=== PATIENT | female | born 1960 | race Caucasian/White ===

== ENCOUNTER 2021-02-23 20:21 | Emergency (ER) | payer MEDICAID, SELFPAY ==
--- NOTE | ~2021-02-23 | CT_ITS ---
EXAMINATION: CT ABDOMEN AND PELVIS WITHOUT CONTRAST CLINICAL INFORMATION: Flank pain right COMPARISON: 07/19/2019 TECHNIQUE: Multidetector volumetric imaging was performed from the superior aspect of the liver through the pubic symphysis. Sagittal and coronal reformatted images were obtained on the technologist's workstation. This CT examination was performed using dose optimization techniques as appropriate, variously including the following: *Automated exposure control *Adjustment of mA and/or kV according to patient size (this includes techniques or standardized protocols for targeted exams where dose is matched to indication/reason for exam; i.e. extremities or head) *Use of iterative reconstruction technique DLP: 482 mGy-cm FINDINGS: LUNG BASES: 6 mm nodule at the right lung base anterior similar to previous. Pericardial thickening also seen previously LIVER, GALLBLADDER, AND BILIARY TREE: The liver is normal in size, shape, and attenuation. No focal hepatic lesion or biliary ductal dilatation is present. Status post cholecystectomy PANCREAS: Unremarkable. SPLEEN: Unremarkable. ADRENAL GLANDS: Unremarkable. KIDNEYS AND URETERS: Small high attenuation lesion inferior pole right kidney. Recommend ultrasound BLADDER: Unremarkable. GASTROINTESTINAL TRACT: The small and large bowel are unremarkable. The appendix is unremarkable. ABDOMINAL WALL: Small periumbilical herniation of omental fat LYMPH NODES: Normal. VASCULAR: Atherosclerotic change. PELVIC VISCERA: Unremarkable. OSSEOUS STRUCTURES: Unremarkable. CT/CT abdomen pelvis wo con IMPRESSION: No evidence of ureteral stone or obstruction. The bowel pattern is nonobstructing. There is no free fluid. Note is made of a small hyperdense lesion lower pole right kidney. Ultrasound recommended to further evaluate.
--- NOTE | ~2021-02-23 | XR_ITS ---
EXAMINATION: XR RIBS, RIGHT CLINICAL INFORMATION: Right-sided rib pain COMPARISON: Chest film dated 10/02/2019 TECHNIQUE: Single view of the chest and 3 detailed views of the right ribs. FINDINGS: Findings suggest patchy areas of opacity in the right lateral lung zone left lateral lung zone mid to upper. Consistent with areas of infiltrate. Chronic markings in the mid to lower lung zones. There is no pneumothorax or effusion. Detailed imaging of the ribs demonstrates a lucency in the region of the fifth rib. A fracture needs to be considered. XR/XR ribs RT min 3V w CXR1V IMPRESSION: Lucency involving the fifth right rib. A fracture needs to be considered here. There is no underlying pneumothorax or effusion but patchy upper lobe opacities right and left most consistent with patchy areas of infiltrate. Follow-up films would be recommended to assess for resolution
--- NOTE | ~2021-02-23 | US_ITS ---
EXAMINATION: US KIDNEYS, LIMITED CLINICAL INFORMATION: hyperdense lesion lower pole right kidney COMPARISON: CT dated 02/23/2021 and 07/19/2019 TECHNIQUE: Real-time imaging of the right kidney. The technologist, the examination was limited as the patient was in too much pain to continue with ultrasound due to broken rib. FINDINGS: The hyperdense lesion seen at the lower pole of the right kidney is not apparent on these images. Right kidney measures 10.9 x 4.5 x 4.2 cm (SAG x AP x TRV). The kidney is normal in size, contour and echogenicity. Renal cortical thickness is normal. No calculi or focal parenchymal lesions. No hydronephrosis. US/US renal RT IMPRESSION: The small hyperdense lesion seen on the prior CT is not apparent on this limited ultrasound. Retrospectively, this was likely present on the prior CT from 07/19/2019 and is most likely benign. If warranted, consider follow-up renal protocol CT with and without contrast or MRI with and without contrast for further assessment on a nonemergent basis for more definitive characterization.
[2021-02-23 20:24] VITALS: PULSE 93; TEMP 36.6; O2SAT 92; BMI 25.4
--- NOTE | 2021-02-23 21:28 | ED.GENADULT ---
HPI - General Adult General Chief complaint: Abdominal Pain Stated complaint: abd pain Time Seen by Provider: 02/23/21 21:15 Source: patient Mode of arrival: ambulatory Limitations: no limitations History of Present Illness HPI narrative: Patient comes emergency room complaining of right-sided rib pain and right-sided flank pain. Patient states several days ago, almost 5 days ago, patient started coughing, states that she thinks that she broke a rib, states that her PCP started her on gabapentin for pain, patient usually takes 10 mg of oxycodone TID. Patient states that for the last 2 days, she has been having right-sided flank pain. Patient states she had 1 episode of episodes today, no diarrhea. Related Data Previous Rx's Medication Instructions Recorded azithromycin 250 mg PO DAILY #4 tab 02/23/21 Allergies Allergy/AdvReac Type Severity Reaction Status Date / Time bee pollen [BEE STINGS] Allergy Severe ANAPHYLAXIS Unverified 05/17/20 15:23 Penicillins Allergy Mild RASH Unverified 05/17/20 15:23 Sulfa (Sulfonamide Allergy Mild RASH Unverified 05/17/20 15:23 Antibiotics) Bee stings Allergy Unknown Uncoded 08/04/19 00:00 Penicillins Allergy Unknown Uncoded 08/04/19 00:00 Sulfar Allergy Unknown Uncoded 08/04/19 00:00 Review of Systems Review of Systems: Constitutional : No Weight loss, No Fever, No Chills, No Night Sweats, No Fatigue, No Malaise ENT/Mouth : No Hearing loss, No Ear Pain, No Nasal Congestion, No Sinus Pain, No Hoarseness, No sore throat, No Rhinorrhea, No Swallowing Difficulty Eyes: No Eye Pain, No Swelling, No Redness, No Foreign Body, No Discharge, No Vision Changes Cardiovascular : No Chest Pain, No SOB, No Dyspnea on Exertion, No Orthopnea, No Edema, No Palpitations Respiratory : No Cough, No Sputum, No Wheezing, No Smoke Exposure, No Dyspnea Gastrointestinal : One episode of vomiting,No Diarrhea, No Constipation, right flank pain radiating towards the right lower quadrant Genitourinary : no irregular bleeding, No Dysuria, No Urinary Frequency, No Hematuria, No Urinary Incontinence, No Urgency, No Flank Pain, No Urinary Flow Changes, No Hesitancy Musculoskeletal : No joint pain, No Myalgias, No Joint Swelling Skin : No Skin Lesions, No rash Neuro : No Weakness, No Numbness, No Paresthesias, No Loss of Consciousness, No Dizziness, No Headache Psych : No Anxiety/Panic, No Depression, No SI/HI/AH/VH, No Social Issues, Heme/Lymph: No Bruising, No Bleeding,No Lymphadenopathy Endocrine : No Polyuria, No Polydipsia, No Temperature Intolerance [facility] Past Medical History Medical History Gallbladder & bile duct stone with obstruction Myocardial infarction Social History Social History Alcohol intake: unknown Patient Tobacco Use Status: Tobacco use Unknown Use of substances other than those prescribed or required for medical reasons: Unknown Advance Directives: No Advance Directives Information Provided: Yes Patient : No Physical Exam Vital Signs: Vital Signs: Last Vital Signs Temp 97.9 F 02/23/21 20:24 Pulse 88 02/23/21 23:30 Resp 20 02/23/21 23:30 BP 164/92 H 02/23/21 23:30 Pulse Ox 99 02/23/21 22:00 Body Mass Index 25.4 Appearance: Alert. Oriented X3. No acute distress. teary Eyes: Pupils equal, round and reactive to light. ENT: Pharynx normal. Neck: Normal inspection. Neck supple. No lymph nodes noted. No crepitus CVS: Normal heart rate and rhythm. Pulses normal. Normal S1 and S2 Respiratory: No respiratory distress. Breath sounds normal. No Wheezing. No rales Abdomen: Soft and nontender. No rigidity. No distention. pain in the right flank back: palpable muscle spasms in the thoracic back Skin: Skin warm and dry. Normal skin color. Normal skin turgor. Extremities: No lower extremity edema. No lower extremity edema. No Lacerations. No Rash Neuro: Oriented X 3. No motor deficit. No sensory deficit. Moving all extermities. No slurred speech. Course Course Course Narrative: I discussed the CT and ultrasound with the patient, the renal cyst is likely benign. Patient struck to follow up with the primary care physician. Patient does have a 5th rib fracture on the right side, patient likely developing pneumonia. Patient started on the antibiotics, patient's oxygen saturation 99% on room air, no desaturations. Patient ready for discharge Medical Decision Making Lab Data Result diagrams: 02/23/21 21:46 02/23/21 22:14 Labs: Lab Results 02/23/21 02/23/21 02/23/21 Range/Units 21:46 21:46 22:14 WBC 11.0 H (4.8-10.8) X10*3/uL RBC 4.88 (4.20-5.50) X10*6/uL Hgb 14.6 (12.0-16.0) g/dl Hct 43.2 (37-47) % MCV 88.5 (80-98) fL MCH 29.9 (27.0-33.0) pg MCHC 33.8 (31.0-35.0) g/dl RDW 14.6 (11.0-16.0) % Plt Count 374 (160-400) X10*3/uL MPV 9.8 (9.4-12.3) fL Immature Gran % (Auto) 0.5 H (0.0-0.4) % Neut % (Auto) 62.6 (45-73) % Lymph % (Auto) 28.4 (20-40) % [place] % (Auto) 7.6 (2-11) % Eos % (Auto) 0.6 (0-4) % Baso % (Auto) 0.3 (0-2) % Lymph # (Auto) 3.1 (1.2-4.9) X10*3/uL [place] # (Auto) 0.8 (0.1-1.2) X10*3/uL Eos # (Auto) 0.1 (0.0-0.4) X10*3/uL Baso # (Auto) 0.0 (0.0-0.2) X10*3/uL Abs Immat Gran (auto) 0.06 H (0.00-0.03) X10*3/uL Absolute Neuts (auto) 6.9 (2.0-8.3) X10*3/uL Absolute Nucleated RBC 0.000 (0.0-0.012) X10*3/uL Nucleated RBC % (auto) 0.0 (0.0-0.2) /100WBC Sodium 139 (135-145) mmol/L Potassium 3.8 (3.3-5.1) mmol/L Chloride 105 (96-108) mmol/L Carbon Dioxide 22 (22-29) mmol/L Anion Gap 16 (12-20) BUN 11 (9-16) mg/dL Creatinine 0.94 (0.5-1.4) mg/dL Estim Creat Clear Calc 70.2 Estimated GFR > 60 Random Glucose 123 H (60-115) mg/dL Calcium 9.9 (8.4-10.2) mg/dL Total Bilirubin Cancelled 0.6 Direct Bilirubin Cancelled 0.3 AST Cancelled 9 ALT Cancelled < 6 Alkaline Phosphatase Cancelled 107 Total Protein Cancelled 7.6 Albumin Cancelled 4.1 Lipase Cancelled 19 Imaging Data Chest x-ray: Radiologist's impression: FINDINGS: Findings suggest patchy areas of opacity in the right lateral lung zone left lateral lung zone mid to upper. Consistent with areas of infiltrate. Chronic markings in the mid to lower lung zones. There is no pneumothorax or effusion. Detailed imaging of the ribs demonstrates a lucency in the region of the fifth rib. A fracture needs to be considered. XR/XR ribs RT min 3V w CXR1V IMPRESSION: Lucency involving the fifth right rib. A fracture needs to be considered here. There is no underlying pneumothorax or effusion but patchy upper lobe opacities right and left most consistent with patchy areas of infiltrate. Follow-up films would be recommended to assess for resolution Discharge Plan Discharge Clinical Impression: Fracture of rib Qualifiers: Encounter type: initial encounter Rib fracture type: single rib Fracture type: closed Laterality: right Qualified Code(s): S22.31XA - Fracture of one rib, right side, initial encounter for closed fracture Pneumonia Qualifiers: Pneumonia type: due to unspecified organism Laterality: unspecified laterality Lung location: unspecified part of lung Qualified Code(s): J18.9 - Pneumonia, unspecified organism Patient Disposition: Home, Self-Care Instructions: Rib Fracture (ED), Pneumonia (ED) Additional Instructions: Please follow-up with your primary care physician tomorrow. If you have any worsening or new symptoms, please return to the emergency room or call 911 Prescriptions: New azithromycin 250 mg tablet 250 mg PO DAILY Qty: 4 RF: 0
[2021-02-23 21:56] LABS: Basophils Percent Auto 0.3 % (0-2); Eosinophils Absolute Auto 0.1 X10*3/uL (0.0-0.4); Eosinophils Percent Auto 0.6 % (0-4); Hematocrit 43.2 % (37-47); Hemoglobin 14.6 g/dl (12.0-16.0); Imm Gran Abs Auto 0.06 X10*3/uL (0.00-0.03); Imm Gran Pct Auto 0.5 % (0.0-0.4); Lymphocytes Absolute Auto 3.1 X10*3/uL (1.2-4.9); Lymphocytes Percent Auto 28.4 % (20-40); MANUAL DIFF FLAG NO; Mean Corpuscular HGB Conc 33.8 g/dl (31.0-35.0); Mean Corpuscular Hemoglobin 29.9 pg (27.0-33.0); Mean Corpuscular Volume 88.5 fL (80-98); Mean Platelet Volume 9.8 fL (9.4-12.3); Monocytes Absolute Auto 0.8 X10*3/uL (0.1-1.2); Monocytes Percent Auto 7.6 % (2-11); Neutrophils Absolute Auto 6.9 X10*3/uL (2.0-8.3); Neutrophils Percent Auto 62.6 % (45-73); Platelet Count 374 X10*3/uL (160-400); Red Blood Count 4.88 X10*6/uL (4.20-5.50); Red Cell Distribution Width 14.6 % (11.0-16.0)
[2021-02-23 22:00] VITALS: BP 134/92; PULSE 84; RESP 16; O2SAT 99
[2021-02-23] MEDS: traMADoL HCL 50 MG TABLET PO (22:15)
[2021-02-23 22:48] LABS: Alanine Aminotransferase < 6 U/L (0-31); Albumin Level 4.1 g/dL (3.5-5.0); Alkaline Phosphatase 107 U/L (39-117); Anion Gap 16 (12-20); Aspartate Amino Transferase 9 U/L (5-31); Bilirubin Direct 0.3 mg/dL (0.0-0.5); Bilirubin Total 0.6 mg/dL (0.0-1.0); Blood Urea Nitrogen 11 mg/dL (9-16); Calcium 9.9 mg/dL (8.4-10.2); Carbon Dioxide 22 mmol/L (22-29); Chloride 105 mmol/L (96-108); Creatinine Clr Calc Pharmacy 70.2; Estimated Glomerular Filt Rate > 60; Glucose Random 123 mg/dL (60-115); Lipase 19 U/L (8-78); Potassium 3.8 mmol/L (3.3-5.1); Sodium 139 mmol/L (135-145); Total Protein 7.6 g/dL (6.5-8.0)
[2021-02-23 23:30] VITALS: BP 164/92; PULSE 88; RESP 20
[2021-02-24] VITALS: BP 164/92; PULSE 83; RESP 18; O2SAT 95
[2021-02-24] MEDS: oxyCODONE HCl Immed Release 5 MG TABLET PO (00:05)
[2021-02-24] MEDS: Azithromycin 500 MG TABLET PO (00:05)
== END 2021-02-24 00:14 | disposition home or self-care (01) ==
PROVIDERS: Emergency Provider Emergency Medicine; PCP Nurse Practitioner Adult Health
DX: S22.31XA Fracture of one rib, right side, initial encounter for closed fracture (principal); J18.9 Pneumonia, unspecified organism; X58.XXXA Exposure to other specified factors, initial encounter; Y93.9 Activity, unspecified; Y92.9 Unspecified place or not applicable; Y99.9 Unspecified external cause status
CPT/HCPCS: 36415; 71101; 74176; 76775; 80048; 80076; 83690; 85025; 99285

== ENCOUNTER 2022-12-21 12:31 | Emergency (ER) | payer OTHER, SELFPAY ==
--- NOTE | ~2022-12-21 | XR_ITS ---
EXAMINATION: XR RIBS, RIGHT CLINICAL INFORMATION: Trauma COMPARISON: Previous chest and right rib x-rays January 2021 TECHNIQUE: 3 views of the right ribs and one view of the chest were obtained. FINDINGS: The cardiac and mediastinal contours are stable. The lungs are clear. No pleural effusion or pneumothorax. There are multiple old right rib fractures. There is a a recent appearing right posterior lateral fourth and fifth rib fractures and question 6 rib fracture. XR/XR ribs RT min 3V w CXR1V IMPRESSION: Right fourth fifth and question 6th recent appearing rib fractures. No evidence for acute disease in the chest.
--- NOTE | ~2022-12-21 | XR_ITS ---
EXAMINATION: XR SHOULDER AND CLAVICLE, RIGHT CLINICAL INFORMATION: Right shoulder pain status post trauma. COMPARISON: None available. TECHNIQUE: 3 views of the right shoulder and 2 views of the right clavicle were obtained. FINDINGS: There is an acute, mildly displaced oblique fracture of the mid one third of the right clavicle. The right sternoclavicular and acromioclavicular joints are normally aligned with mild degenerative changes. The right glenohumeral joint is intact. The soft tissues are unremarkable. XR/XR clavicle RT IMPRESSION: 1. Acute, mildly displaced mid right clavicular fracture. 2. Mild right sternoclavicular and acromioclavicular degenerative joint changes.
--- NOTE | ~2022-12-21 | XR_ITS ---
EXAMINATION: XR SHOULDER AND CLAVICLE, RIGHT CLINICAL INFORMATION: Right shoulder pain status post trauma. COMPARISON: None available. TECHNIQUE: 3 views of the right shoulder and 2 views of the right clavicle were obtained. FINDINGS: There is an acute, mildly displaced oblique fracture of the mid one third of the right clavicle. The right sternoclavicular and acromioclavicular joints are normally aligned with mild degenerative changes. The right glenohumeral joint is intact. The soft tissues are unremarkable. XR/XR shoulder RT min 2V IMPRESSION: 1. Acute, mildly displaced mid right clavicular fracture. 2. Mild right sternoclavicular and acromioclavicular degenerative joint changes.
[2022-12-21 12:33] VITALS: BP 141/95; PULSE 117; RESP 18; TEMP 36.6; O2SAT 98; BMI 24.5
--- NOTE | 2022-12-21 12:35 | ED_ITS ---
HPI - General Adult General Chief complaint: Fall <[place] - Last Filed: 12/21/22 12:36> Stated complaint: Fall/R shoulder inj/R rib inj <[place] - Last Filed: 12/21/22 12:36> Time Seen by Provider: 12/21/22 13:09 <[place] - Last Filed: 12/21/22 12:36> History of Present Illness HPI narrative: Patient complains of left shoulder, left clavicle, and left mid rib pain after a fall on a wet manhole cover where she fell on her left side this morn ing, she has no neck pain no back pain, she did not hit her head she has no headache no dizziness no confusion, she did not have any preceding dizziness or faintness she simply slipped and fell in remembers every, no abdominal pain no shortness of breath <MARY ELLEN Ritter - Last Filed: 12/21/22 19:21> Related Data Home medications: Previous Rx's Medication Instructions Recorded azithromycin 250 mg tablet 250 mg PO DAILY #4 tabs 02/23/21 acetaminophen 500 mg tablet 1,000 mg PO QID PRN pain #30 tabs 12/21/22 oxycodone 5 mg tablet 5 mg PO Q6H PRN pain #14 tabs 12/21/22 <[place] - Last Filed: 12/21/22 12:36> Allergies/adverse reactions: Allergies Allergy/AdvReac Type Severity Reaction Status Date / Time bee pollen [BEE STINGS] Allergy Severe ANAPHYLAXIS Verified 12/21/22 12:33 Penicillins Allergy Mild RASH Verified 12/21/22 12:33 Sulfa (Sulfonamide Allergy Mild RASH Verified 12/21/22 12:33 Antibiotics) Bee stings Allergy Unknown Unknown Uncoded 12/21/22 12:33 Penicillins Allergy Unknown Unknown Uncoded 12/21/22 12:33 Sulfar Allergy Unknown Unknown Uncoded 12/21/22 12:33 <[place] - Last Filed: 12/21/22 12:36> PMFSH Past Medical History Source: nursing notes reviewed <MARY ELLEN Ritter - Last Filed: 12/21/22 19:21> Medical History: Medical History Gallbladder & bile duct stone with obstruction Myocardial infarction <[place] - Last Filed: 12/21/22 12:36> Social History Social History: Social History Alcohol intake: unknown Patient Tobacco Use Status: Tobacco use Unknown Advance Directives: No Advance Directives Information Provided: No <[place] - Last Filed: 12/21/22 12:36> Physical Exam ED Vital Signs: Vital Signs - 24 hr 12/21/22 12:33 Temperature 98 F Pulse Rate 117 H Respiratory Rate 18 Blood Pressure 141/95 H Pulse Oximetry 98 Oxygen Delivery Method Room Air BMI result Body Mass Index 24.5 <[place] - Last Filed: 12/21/22 12:36> Vital Signs - 24 hr 12/21/22 12:33 Temperature 98 F Pulse Rate 117 H Respiratory Rate 18 Blood Pressure 141/95 H Pulse Oximetry 98 Oxygen Delivery Method Room Air BMI result Body Mass Index 24.5 <MARY ELLEN Ritter - Last Filed: 12/21/22 19:21> General appearance is no acute distress Head is normocephalic atraumatic Neck is supple no tenderness no midline tenderness, full range of motion in the neck The chest is clear to auscultation with full symmetric equal breath sounds Posterolateral mid rib area is tender to the touch , there is ecchymosis over mid clavicle in the right chest wall no other ecchymosis, no other chest wall tenderness, there was no crepitus The abdomen is soft and nontender Extremities the right shoulder had anterior and lateral tenderness, range of motion was very limited, there was no deformity, neurovascular intact distal Other extremities normal <MARY ELLEN Ritter - Last Filed: 12/21/22 19:21> Course Course Course Narrative: 62-year-old female presents for evaluation of right shoulder and rib pain. She reports slipping on a manhole cover last night and falling on her right side. Denies hitting her head or losing consciousness. Denies anticoagulation use. No evidence of head trauma. X-rays of the right shoulder, clavicle and ribs ordered. <[place] - Last Filed: 12/21/22 12:36> 62-year-old female presents for evaluation of right shoulder and rib pain. She reports slipping on a manhole cover last night and falling on her right side. Denies hitting her head or losing consciousness. Denies anticoagulation use. No evidence of head trauma. X-rays of the right shoulder, clavicle and ribs ordered. Patient with ecchymosis tenderness over mid right clavicle and tenderness in the ribs with clear lungs breathing easily after a fall X-rays showed a mildly displaced oblique fracture of the mid 3rd of the right clavicle, as well as some arthritis in the shoulder joint but no other fracture no dislocation in the shoulder area X-ray of the ribs and lung showed a right posterolateral 4th and 5th recent appearing rib fractures no other worrisome findings in the chest X-ray findings match where patient has tenderness and discomfort is in both ribs and clavicle She is given a sling and pain medicine and will follow with orthopedics for further evaluation <MARY ELLEN Ritter - Last Filed: 12/21/22 19:21> Medications Administered Discontinued Medications Generic Name Dose Route Start Last Admin Trade Name Freq PRN Reason Stop Dose Admin Acetaminophen 975 mg 12/21/22 13:50 12/21/22 13:58 Acetaminophen 325 Mg Tablet PO 12/21/22 13:51 975 mg ONCE ONE Administration Lorazepam 0.5 mg 12/21/22 13:52 12/21/22 13:58 Lorazepam 0.5 Mg Tablet PO 12/21/22 13:53 0.5 mg ONCE ONE Administration Oxycodone HCl 5 mg 12/21/22 13:50 12/21/22 13:58 Oxycodone Hcl Immed Release 5 Mg Tablet PO 12/21/22 13:51 5 mg ONCE ONE Administration <[place] - Last Filed: 12/21/22 12:36> Medications Administered Discontinued Medications Generic Name Dose Route Start Last Admin Trade Name Freq PRN Reason Stop Dose Admin Acetaminophen 975 mg 12/21/22 13:50 12/21/22 13:58 Acetaminophen 325 Mg Tablet PO 12/21/22 13:51 975 mg ONCE ONE Administration Lorazepam 0.5 mg 12/21/22 13:52 12/21/22 13:58 Lorazepam 0.5 Mg Tablet PO 12/21/22 13:53 0.5 mg ONCE ONE Administration Oxycodone HCl 5 mg 12/21/22 13:50 12/21/22 13:58 Oxycodone Hcl Immed Release 5 Mg Tablet PO 12/21/22 13:51 5 mg ONCE ONE Administration <MARY ELLEN Ritter - Last Filed: 12/21/22 19:21> Discharge Plan Discharge Clinical Impression: Closed fracture of right clavicle, Multiple rib fractures <[place] - Last Filed: 12/21/22 12:36> Patient Disposition: Home, Self-Care <[place] - Last Filed: 12/21/22 12:36> Additional Instructions: X-rays showed a broken right clavicle so follow with orthopedist X-ray identified to rib fractures possibly a 3rd in the area of discomfort on her right side Follow with primary doctor for re-evaluation next week Return to the ER any time for any difficulty breathing any worse condition any concerns <[place] - Last Filed: 12/21/22 12:36> Prescriptions: New oxycodone 5 mg tablet 5 mg PO Q6H PRN (Reason: pain) Qty: 14 0RF Rx Instructions: Partial Fill upon patient request. acetaminophen 500 mg tablet 1,000 mg PO QID PRN (Reason: pain) Qty: 30 0RF No Action azithromycin 250 mg tablet 250 mg PO DAILY Qty: 4 0RF <[place] - Last Filed: 12/21/22 12:36> Interventions: ED Discharge Assessment Last Done: 12/21/22 14:08 <[place] - Last Filed: 12/21/22 12:36> Discharge Date/Time: 12/21/22 14:09 <[place] - Last Filed: 12/21/22 12:36>
[2022-12-21] MEDS: oxyCODONE HCl Immed Release 5 MG TABLET PO (13:58)
[2022-12-21] MEDS: LORazepam 0.5 MG TABLET PO (13:58)
[2022-12-21] MEDS: Acetaminophen 325 MG TABLET 975 MG PO (13:58)
== END 2022-12-21 14:09 | disposition home or self-care (01) ==
PROVIDERS: Emergency Provider Emergency Medicine Emergency Medical Services; PCP Nurse Practitioner Adult Health
DX: S42.001A Fracture of unspecified part of right clavicle, initial encounter for closed fracture (principal); S22.41XA Multiple fractures of ribs, right side, initial encounter for closed fracture; R07.81 Pleurodynia; M25.511 Pain in right shoulder; W01.0XXA Fall on same level from slipping, tripping and stumbling without subsequent striking against object, initial encounter; Y93.9 Activity, unspecified; Y92.9 Unspecified place or not applicable; Y99.9 Unspecified external cause status; Z79.899 Other long term (current) drug therapy
CPT/HCPCS: 71101; 73000; 73030; 99283

== ENCOUNTER 2023-04-15 14:13 | Emergency (ER) | payer OTHER, SELFPAY ==
--- NOTE | ~2023-04-15 | XR_ITS ---
EXAMINATION: XR CLAVICLE, RIGHT CLINICAL INFORMATION: Palpable lump, status post surgery. COMPARISON: Right shoulder and clavicle radiographs dated 12/21/2022. TECHNIQUE: 2 of the right clavicle. FINDINGS: There is a nonunited fracture of the distal one third of the right clavicle. A headless screw is seen in the proximal aspect of the clavicle extending into the fracture site. Adjacent corticated osseous fragments are seen. The right acromioclavicular joint is intact. The right glenohumeral joint is intact. Healing/healed right posterolateral right rib fractures are noted. The soft tissues are unremarkable. XR/XR clavicle RT IMPRESSION: Nonunited distal right clavicular fracture with evidence for healing. The proximal screw appears intact but does not appear to transfix the fracture.
--- NOTE | ~2023-04-15 | XR_ITS ---
EXAMINATION: XR SHOULDER, RIGHT CLINICAL INFORMATION: Status post ORIF. COMPARISON: Right shoulder radiographs dated 12/21/2022. TECHNIQUE: Three views of the right shoulder. FINDINGS: There is a nonunited fracture of the distal one third of the right clavicle. A headless screw is seen in the proximal aspect of the clavicle extending into the fracture site. Adjacent corticated osseous fragments are seen. The right acromioclavicular joint is intact. The right glenohumeral joint is intact. Healing/healed right posterolateral right rib fractures are noted. The soft tissues are unremarkable. XR/XR shoulder RT min 2V IMPRESSION: Nonunited distal right clavicular fracture with evidence for healing. The proximal screw appears intact but does not appear to transfix the fracture.
--- NOTE | 2023-04-15 14:26 | ED_ITS ---
HPI - Extremity Injury (Upper) General Chief Complaint: Extremity Problem Stated Complaint: R Shoulder Pain S/P Surgery in January Time Seen by Provider: 04/15/23 16:15 Source: patient and family (partner) Mode of arrival: ambulatory Limitations: no limitations History of Present Illness HPI narrative: Patient is a 62 year old assigned female at with a history of a right clavicle fracture presenting to the emergency department today with right shoulder pain. Patient states that she broke her right clavicle in January and had it repaired in early February. Patient states that it all of a sudden, 2 days ago, started hurting significantly worse. Patient states that she went to the [facility] urgent care today and they told her to come to the [facility] ED. Patient denies any dizziness, lightheadedness, abdominal pain, nausea, vomiting, fever, chills, blurry vision, double vision, loss of vision, chest pain, difficulty breathing, shortness of breath, back pain, night sweats, pain with urination, increased urinary frequency, increased urinary urgency, blood in her urine or stool, syncope or a near syncopal episode, recent trauma or falls, bowel incontinence, bladder incontinence, bowel retention, bladder retention, or any other complaints at this time. MD complaint: injury to: right and shoulder Onset (ago): day(s) (2) Severity: mild Severity scale (1-10): 3 Relieving factors: immobilization Exacerbating factors: movement of extremity Associated symptoms: denies other symptoms Related Data Previous Rx's Medication Instructions Recorded azithromycin 250 mg tablet 250 mg PO DAILY #4 tabs 02/23/21 acetaminophen 500 mg tablet 1,000 mg PO QID PRN pain #30 tabs 12/21/22 oxycodone 5 mg tablet 5 mg PO Q6H PRN pain #14 tabs 12/21/22 oxycodone 5 mg tablet 5 mg PO DAILY PRN pain 2 days #5 04/15/23 tabs Allergies Allergy/AdvReac Type Severity Reaction Status Date / Time bee pollen [BEE STINGS] Allergy Severe ANAPHYLAXIS Verified 12/21/22 12:33 Penicillins Allergy Mild RASH Verified 12/21/22 12:33 Sulfa (Sulfonamide Allergy Mild RASH Verified 12/21/22 12:33 Antibiotics) Bee stings Allergy Unknown Unknown Uncoded 12/21/22 12:33 Penicillins Allergy Unknown Unknown Uncoded 12/21/22 12:33 Sulfar Allergy Unknown Unknown Uncoded 12/21/22 12:33 Review of Systems Constitutional: Constitutional: Reports no additional constitutional complaints, Denies chills, Denies fever(s) and Denies night sweats Eyes: Eyes: Reports no additional eye complaints, Denies blurry vision, Denies change in vision, Denies diplopia, Denies eye discharge, Denies loss of vision and Denies eye pain ENT: Denies dizziness Cardiovascular: Cardiovascular: Reports no additional cardiovascular complaints, Denies chest pain, Denies lightheadedness, Denies Loss of Consciousness and Denies dyspnea Respiratory: Respiratory: Reports no additional respiratory complaints and Denies dyspnea Gastrointestinal: Gastrointestinal: Reports no additional gastrointestinal complaints, Denies abdominal pain, Denies melena, Denies hematochezia, Denies change in bowel habits and Denies change in stool character Genitourinary: Genitourinary: Denies hematuria, Denies urinary frequency, Denies dysuria, Denies urinary incontinence, Denies urinary hesitancy and Denies urinary urgency Musculoskeletal: Musculoskeletal: Reports no additional musculoskeletal complaints, Denies numbness and Denies tingling Comments: right shoulder pain Neurologic: Denies dizziness, Denies loss of vision, Denies numbness and Denies tingling Psychiatric: Psychiatric: Reports no additional psychiatric complaints Endocrine: Endocrine: Reports no additional endocrine complaints Hematologic/Lymphatic: Hematologic/Lymphatic: Reports no additional hematologic/lymphatic complaints Allergic/Immunologic: Allergic/Immunologic: Reports no additional allergic/immunologic complaints PMFSH Past Medical History Attestation statement: The following information was validated with the patient. 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 Myocardial infarction Social History Social History Alcohol intake: unknown Patient Tobacco Use Status: Tobacco use Unknown Advance Directives: No Advance Directives Information Provided: Yes Physical Exam Vital Signs: Vital Signs: Last Vital Signs Temp 98.3 F 04/15/23 14:27 Pulse 90 04/15/23 14:27 Resp 18 04/15/23 14:27 BP 148/92 H 04/15/23 14:27 Pulse Ox 96 04/15/23 14:27 O2 Del Method Room Air 04/15/23 14:27 BMI result Body Mass Index 25.1 Const: General: cooperative, no acute distress, alert and awake Nutritional Appearance: well nourished Orientation/consciousness: patient oriented x3 Limitations: no limitations HEENT: Head: Yes normal to inspection and Yes atraumatic Ears: hearing grossly normal bilaterally and external ears normal General nose exam: Normal external nose present, no nasal discharge noted and no epistaxis Face and sinus: Yes normal facial exam, No abrasion and No laceration Mouth: Normal oral and palatal mucosa present, no drooling and no muffled voice Eyes: General: appearance normal, both eyes and all related structures Periorbital: periorbital findings normal Eyelids: Yes eyelids normal Conjunctivae: conjunctivae normal Pupils: Equal, round and reactive pupils present EOM: EOMs intact bilaterally Neck: Neck: Yes normal visual inspection, Yes full ROM and Yes no lymphadenopathy Chest: Chest palpation & inspection: normal inspection of the chest Resp: Effort & Inspection: normal respiratory effort and able to speak in complete sentences GI: Inspection: Yes normal to inspection Neuro: General: patient oriented x3 and moves all extremities Cranial nerves: Yes Equal, round and reactive pupils present Cognition (Neuro): normal cognition Motor exam (neuro): 5/5 motor strength present throughout Sensory Exam: Normal double simultaneous stimulation for sensation Coordination: [id number] test normal Extrem: Other: swelling present to the right mid clavicle. Patient's right arm is in sling. General: Yes capillary refill normal Psych: Appearance: grossly normal Mental Status: mental status grossly normal Affect: normal affect Attitude: cooperative Thought process: Normal thought process present Thought content: Normal thought content present Insight: Good insight present (Psych) Course Course Course Narrative: RME: 62yo F w/PMHx right clavicular fx s/p 2 repairs at [facility] 04/01 & 04/09 presenting to ED complaining of painful lump to proximal clavicle x few days. Patient suspicious for re-fracture or meme/plans moving. Denies injury + palpable swelling/ecchymosis and tenderness noted to proximal clavicle. Decreased ROM. Neurovascular intact distally X-ray ordered Full HPI, ROS and PE to be performed by primary ED provider. Medications Administered Discontinued Medications Generic Name Dose Route Start Last Admin Trade Name Freq PRN Reason Stop Dose Admin Oxycodone HCl 10 mg 04/15/23 16:52 04/15/23 16:59 Oxycodone Hcl Immed Release 5 Mg Tablet PO 04/15/23 16:53 10 mg ONCE ONE Administration Medical Decision Making Medical Decision Making MDM Narrative: Patient is a 62 year old assigned female at with a history of a right clav icular fracture presenting to the emergency department today with right shoulder pain. Patient's physical exam was as noted in the physical exam portion of this note. Additionally, patient and her partner smelled of alcohol. Patient's right clavicle and shoulder x-rays showed a nonunited distal right clavicular fracture with evidence of healing. Given the patient's clavicle XR and overall clinical presentation, I am concerned for undisclosed repeat trauma to the area. I spoke with our orthopedic provider who recommended the patient remain in a sling and follow back up with her provider from [facility]. Concerned about the [facility] walk in staff telling the patient to proceed to a non-affiliated ED, I called the [facility] office. I was informed by [facility] staff that the patient was not seen at the urgent care today as the urgent care has been closed all day. Staff at [facility] stated that the providers for the urgent care were pulled for the OR and they have known this since yesterday, so there has been notice of the urgent care being closed since yesterday. Additionally, staff informed me that the patient has missed most follow up appointments with her surgeon, has received multiple refills of Oxyocodone, and has her next appointment with them in 1 week. I explained my physical exam findings as well as all test results to the patient and the patient's partner. I answered all questions asked by the patient and the patient's partner. Patient received a dose of pain medication while in the department which she stated helped her pain significantly. I stressed the importance of the patient taking her medication as prescribed. I stressed the importance of the patient following up with her primary care provider and her orthopedic provider. I stressed the importance of the patient returning to the emergency department immediately if her symptoms were to worsen or if she were to develop any dizziness, shortness of breath, difficulty breathing, chest pain, blurry vision, loss of vision, nausea, vomiting, abdominal pain, fever, chills, back pain, or any other complaints. Patient and the patient's partner verbalized agreement and understanding with this treatment plan and discharge. Differential Diagnosis Differential Diagnoses: The differential diagnosis associated with the presentation includes Non-compliance Right clavicular fracture Consult Healthcare Provider Management of the patient was discussed with: Publishing Editor (spoke with our orthopedic team and [facility] staff as noted in the MDM portion of this note.) Independent Interpretation I performed an independent interpretation of an: Plain X-Ray Interpretation: My interpretation is in agreement with the radiologist's impression of these imaging studies. EXAMINATION: XR SHOULDER, RIGHT CLINICAL INFORMATION: Status post ORIF. COMPARISON: Right shoulder radiographs dated 12/21/2022.? TECHNIQUE: Three views of the right shoulder. FINDINGS: There is a nonunited fracture of the distal one third of the right clavicle. A headless screw is seen in the proximal aspect of the clavicle extending into the fracture site. Adjacent corticated osseous fragments are seen. The right acromioclavicular joint is intact. The right glenohumeral joint is intact. Healing/healed right posterolateral right rib fractures are noted. The soft tissues are unremarkable.? XR/XR shoulder RT min 2V IMPRESSION: Nonunited distal right clavicular fracture with evidence for healing. The proximal screw appears intact but does not appear to transfix the fracture. Dictated By: Roger Umaña MD Signed By: Electronically signed by Roger Umaña MD 04/15/23 1516 EXAMINATION: XR CLAVICLE, RIGHT CLINICAL INFORMATION: Palpable lump, status post surgery.? COMPARISON: Right shoulder and clavicle radiographs dated 12/21/2022.? TECHNIQUE: 2 of the right clavicle. FINDINGS: There is a nonunited fracture of the distal one third of the right clavicle. A headless screw is seen in the proximal aspect of the clavicle extending into the fracture site. Adjacent corticated osseous fragments are seen. The right acromioclavicular joint is intact. The right glenohumeral joint is intact. Healing/healed right posterolateral right rib fractures are noted. The soft tissues are unremarkable.? XR/XR clavicle RT IMPRESSION: Nonunited distal right clavicular fracture with evidence for healing. The proximal screw appears intact but does not appear to transfix the fracture. Dictated By: Roger Umaña MD Signed By: Electronically signed by Roger Umaña MD 04/15/23 3142 Radiology Impression Discussion of test interpretation with radiology: I have reviewed the radiologist's reading. Independent Historian Clinical information obtained from an independent historian. History obtained from or confirmed by: Other (patient's partner provided additional history and confirmed the history provided by the patient.) Prescription Management I considered prescription management with: Pain Medication (patient prescribed small dose of pain medication.) Critical Care Time Critical Care Time Critical Care Time: Yes Total Critical Care Time: 40 Attestation: I spent 40 minutes of Critical Care Time with this patient. This does not include time spent on separately reported billable procedures. Discharge Plan Discharge Clinical Impression: Clavicle fracture Patient Disposition: Home, Self-Care Instructions: Clavicle Fracture (ED) Additional Instructions: Follow up with your primary care provider and your orthopedic provider. Continue to wear your sling. Return to the emergency department immediately if your symptoms worsen or if you develop any dizziness, shortness of breath, difficulty breathing, chest pain, blurry vision, loss of vision, nausea, vomiting, abdominal pain, fever, chills, back pain, or any other complaints. Prescriptions: New oxycodone 5 mg tablet 5 mg PO DAILY PRN (Reason: pain) 2 Days Qty: 5 0RF Rx Instructions: Partial Fill upon patient request. No Action azithromycin 250 mg tablet 250 mg PO DAILY Qty: 4 0RF oxycodone 5 mg tablet 5 mg PO Q6H PRN (Reason: pain) Qty: 14 0RF Rx Instructions: Partial Fill upon patient request. acetaminophen 500 mg tablet 1,000 mg PO QID PRN (Reason: pain) Qty: 30 0RF Interventions: ED Discharge Assessment Last Done: 04/15/23 17:04 Discharge Date/Time: 04/15/23 17:04 Print Language: Kyrgyz
[2023-04-15 14:27] VITALS: BP 148/92; PULSE 90; RESP 18; TEMP 36.8; O2SAT 96; BMI 25.1
[2023-04-15] MEDS: oxyCODONE HCl Immed Release 5 MG TABLET 10 MG PO (16:59)
--- NOTE | 2023-04-15 17:04 | PC.NURSE ---
medicated per MAR, pt to follow up w [facility].
== END 2023-04-15 17:04 | disposition home or self-care (01) ==
PROVIDERS: Emergency Provider Student in an Organized Health Care Education/Training Program; PCP Nurse Practitioner Adult Health
DX: S42.031A Displaced fracture of lateral end of right clavicle, initial encounter for closed fracture (principal); M25.511 Pain in right shoulder; X58.XXXA Exposure to other specified factors, initial encounter; Y93.9 Activity, unspecified; Y92.9 Unspecified place or not applicable; Y99.9 Unspecified external cause status; Z79.899 Other long term (current) drug therapy
CPT/HCPCS: 73000; 73030; 99283

== ENCOUNTER 2024-02-21 17:26 | Emergency (ER) | payer OTHER, SELFPAY ==
--- NOTE | ~2024-02-21 | XR_ITS ---
EXAMINATION: CR LEFT SHOULDER. CR RIGHT SHOULDER. CLINICAL INFORMATION: Fall. Shoulder pain. COMPARISON: Right clavicle films dated 04/15/2023. Right shoulder films dated 04/15/2023. TECHNIQUE: 3 views of the left shoulder. 3 views of the right shoulder. FINDINGS: Left shoulder: There is a nondisplaced transverse partially impacted fracture of the left humeral neck extending into the greater tuberosity. No dislocation. Glenohumeral joint and acromioclavicular joints intact. There is prominent nonbursal surface spurring at the acromioclavicular joint. Minimal spurring is seen along the inferior glenohumeral joint. No joint calcifications. Right shoulder: No acute fracture or dislocation. Glenohumeral joint and acromion clavicular joints are intact. Prominent nonpersonal surface spurring is seen at the acromion clavicular joint. No joint calcifications.: Ununited fracture deformity of the left mid clavicle with partial resection seen. Diffuse osteopenia. Old healed fracture deformities of the lateral right third, fourth, fifth, sixth ribs seen. Degenerative changes in the lower cervical spine. XR/XR shoulder LT min 2V IMPRESSION: * Nondisplaced transverse fracture of the left humeral neck extending into the greater tuberosity. * No acute fracture of the right shoulder. * Old healed fracture deformities of the right third through sixth ribs and right clavicle. * Diffuse osteopenia. * Bilateral acromioclavicular joint degenerative changes.
--- NOTE | ~2024-02-21 | XR_ITS ---
EXAMINATION: XR BILATERAL HIPS WITH AP PELVIS CLINICAL INFORMATION: Fall bilateral hip pain COMPARISON: Bilateral hip radiograph from 09/25/2019 TECHNIQUE: Single view the pelvis 2 views of each hip FINDINGS: No acute visible fracture or dislocation. Degenerative arthropathy of the bilateral femoral acetabular joint. Degenerative changes of the lumbosacral spine. Sclerotic focus base of the right femoral neck measuring 9 mm potentially representing a bone island. Joint spaces and alignment are otherwise maintained. Pelvic phleboliths. Calcific focus in the pelvis potentially representing a calcified uterine fibroid. XR/XR hip BI w PEL1V IMPRESSION: 1. No acute visible fracture or dislocation. 2. Degenerative arthropathy of the bilateral femoral acetabular joint.
--- NOTE | ~2024-02-21 | XR_ITS ---
EXAMINATION: CR LEFT SHOULDER. CR RIGHT SHOULDER. CLINICAL INFORMATION: Fall. Shoulder pain. COMPARISON: Right clavicle films dated 04/15/2023. Right shoulder films dated 04/15/2023. TECHNIQUE: 3 views of the left shoulder. 3 views of the right shoulder. FINDINGS: Left shoulder: There is a nondisplaced transverse partially impacted fracture of the left humeral neck extending into the greater tuberosity. No dislocation. Glenohumeral joint and acromioclavicular joints intact. There is prominent nonbursal surface spurring at the acromioclavicular joint. Minimal spurring is seen along the inferior glenohumeral joint. No joint calcifications. Right shoulder: No acute fracture or dislocation. Glenohumeral joint and acromion clavicular joints are intact. Prominent nonpersonal surface spurring is seen at the acromion clavicular joint. No joint calcifications.: Ununited fracture deformity of the left mid clavicle with partial resection seen. Diffuse osteopenia. Old healed fracture deformities of the lateral right third, fourth, fifth, sixth ribs seen. Degenerative changes in the lower cervical spine. XR/XR shoulder RT min 2V IMPRESSION: * Nondisplaced transverse fracture of the left humeral neck extending into the greater tuberosity. * No acute fracture of the right shoulder. * Old healed fracture deformities of the right third through sixth ribs and right clavicle. * Diffuse osteopenia. * Bilateral acromioclavicular joint degenerative changes.
--- NOTE | ~2024-02-21 | CT_ITS ---
EXAMINATION: CT head/brain wo IV con CT facial bones wo IV con CT cervical spine wo IV con INDICATION INFORMATION: Fall. hit head. tooth came out COMPARISON: CT head/C-spine 09/25/2019 TECHNIQUE: Multidetector CT acquisitions of the head, maxillofacial region, and cervical spine were obtained without IV contrast. Multiplanar reformats were acquired and utilized for image interpretation. This CT examination was performed using dose optimization techniques as appropriate, variously including the following: * Automated exposure control * Adjustment of mA and/or kV according to patient size (this includes techniques or standardized protocols for targeted exams where dose is matched to indication/reason for exam; i.e. extremities or head) Use of iterative reconstruction technique DLP: 1277 mGy-cm FINDINGS: HEAD: There is no evidence of acute intracranial hemorrhage or territorial infarction. No abnormal mass-effect or midline shift is seen. Cortez to white matter differentiation is well preserved. No extra-axial fluid collections are identified. No hydrocephalus. No significant volume loss. Patchy periventricular and deep white matter hypoattenuation is consistent with mild small vessel ischemic changes. No acute soft tissue abnormality. No acute calvarial fracture. The mastoid air cells are well aerated. MAXILLOFACIAL: Dental caries noted in the bilateral maxillary lateral incisor and canine teeth. Absent bilateral mandibular central incisor teeth. No acute maxillofacial fractures are seen. The mandible, maxilla, pterygoid plates, nasal bones, zygomatic arches, paranasal sinus mcwilliams, and bony orbits are intact. The frontal, maxillary, ethmoid, and sphenoid sinuses are well aerated. The uncinate process is normal bilaterally. The infundibula and middle meati are patent. There is a rightward nasal septal deviation. The mandibular heads are well-seated in the condylar fossa. No significant focal soft tissue swelling. The orbits demonstrate a normal appearance bilaterally. The globes are intact, and there are no suspicious findings to suggest retrobulbar hemorrhage. CERVICAL SPINE: There is anatomic alignment of the vertebral bodies and posterior elements. Vertebral body heights and intervertebral disc spaces are maintained. No acute fracture or subluxation. The atlantooccipital and atlantoaxial articulations are normal. The bony canal and neural foramina are well maintained. Mild to moderate multilevel facet arthropathy. There is no prevertebral soft tissue swelling. No significant soft tissue abnormality within the neck. Centrilobular and paraseptal emphysema in the visualized lung apices. CT/CT cervical spine wo IV con IMPRESSION: 1. No acute intracranial abnormality. 2. No acute osseous abnormality within the maxillofacial region. Dental caries as the as described above. Dental consult recommended. 3. No acute osseous abnormality within the cervical spine.
[2024-02-21 17:51] VITALS: BP 133/85; PULSE 87; RESP 16; TEMP 36.7; O2SAT 97; BMI 25.8
--- NOTE | 2024-02-21 17:56 | ED.GENADULT ---
HPI - General Adult General Chief complaint: Fall Stated complaint: fell, hurt hip and shoulders, knocked teeth out Time Seen by Provider: 02/21/24 19:13 Source: patient Mode of arrival: ambulatory Limitations: no limitations History of Present Illness ED Provider: June Buchanan PA-C HPI narrative: Patient is a 63 year old assigned female at with a history of a right clavicle fracture and an UT presenting to the emergency department today with bilateral shoulder pain and left hip pain after a fall. Patient states that she tripped and fell out of an elevator with bilateral shoulder and left hip pain. Patient denies any dizziness, lightheadedness, abdominal pain, nausea, vomiting, fever, chills, blurry vision, double vision, loss of vision, chest pain, difficulty breathing, shortness of breath, back pain, night sweats, pain with urination, increased urinary frequency, increased urinary urgency, blood in her urine or stool, syncope or a near syncopal episode, bowel incontinence, bladder incontinence, or any other complaints at this time. Onset (ago): hour(s) Location: left, upper extremity and lower extremity Severity: mild Severity scale (1-10): 4 Quality: aching and dull Pain Consistency: constant Relieving factors: none Exacerbating factors: none Associated symptoms: denies other symptoms Treatments prior to arrival: none Related Data Previous Rx's ?Medication ?Instructions ?Recorded azithromycin 250 mg tablet 250 mg PO DAILY #4 tabs 02/23/21 acetaminophen 500 mg tablet 1,000 mg (2 x 500 mg) PO QID PRN 12/21/22 pain #30 tabs oxycodone 5 mg tablet 5 mg PO Q6H PRN pain #14 tabs 12/21/22 oxycodone 5 mg tablet 5 mg PO DAILY PRN pain 2 days #5 04/15/23 tabs oxycodone 5 mg tablet 5 mg PO Q6H PRN pain #3 tabs 02/21/24 oxycodone 5 mg tablet 5 mg PO Q6H PRN pain #3 tabs 02/21/24 Allergies Allergy/AdvReac Type Severity Reaction Status Date / Time bee pollen [BEE STINGS] Allergy Severe ANAPHYLAXIS Verified 02/21/24 17:52 Penicillins Allergy Mild RASH Verified 02/21/24 17:52 Sulfa (Sulfonamide Allergy Mild RASH Verified 02/21/24 17:52 Antibiotics) Bee stings Allergy Unknown Unknown Uncoded 12/21/22 12:33 Penicillins Allergy Unknown Unknown Uncoded 12/21/22 12:33 Sulfar Allergy Unknown Unknown Uncoded 12/21/22 12:33 Review of Systems Constitutional: Constitutional: Reports no additional constitutional complaints, Denies chills, Denies fever(s) and Denies night sweats Eyes: Eyes: Reports no additional eye complaints, Denies blurry vision, Denies change in vision, Denies diplopia, Denies eye discharge, Denies loss of vision and Denies eye pain ENT: Denies dizziness Cardiovascular: Cardiovascular: Reports no additional cardiovascular complaints, Denies chest pain, Denies lightheadedness, Denies Loss of Consciousness and Denies dyspnea Respiratory: Respiratory: Reports no additional respiratory complaints and Denies dyspnea Gastrointestinal: Gastrointestinal: Reports no additional gastrointestinal complaints, Denies abdominal pain, Denies melena, Denies hematochezia, Denies change in bowel habits and Denies change in stool character Genitourinary: Genitourinary: Denies hematuria, Denies urinary frequency, Denies dysuria, Denies urinary incontinence, Denies urinary hesitancy and Denies urinary urgency Musculoskeletal: Musculoskeletal: Reports no additional musculoskeletal complaints, Denies numbness and Denies tingling Comments: bilateral shoulder pain, left hip pain Neurologic: Denies dizziness, Denies loss of vision, Denies numbness and Denies tingling Psychiatric: Psychiatric: Reports no additional psychiatric complaints Endocrine: Endocrine: Reports no additional endocrine complaints Hematologic/Lymphatic: Hematologic/Lymphatic: Reports no additional hematologic/lymphatic complaints Allergic/Immunologic: Allergic/Immunologic: Reports no additional allergic/immunologic complaints [facility] Past Medical History Attestation statement: The following information was validated with the patient. 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 Myocardial infarction Social History Social History Alcohol intake: unknown Patient Tobacco Use Status: Tobacco use Unknown Advance Directives: No Advance Directives Information Provided: No Do you have a plan to hurt others: No Plan Physical Exam ED Vital Signs: Vital Signs - 24 hr 02/21/24 17:51 02/21/24 19:15 02/21/24 20:08 Temperature 98.0 F 98.2 F 98.2 F Pulse Rate 87 84 84 Respiratory Rate 16 20 20 Blood Pressure 133/85 134/86 134/86 Pulse Oximetry 97 97 97 Oxygen Delivery Method Room Air Room Air Room Air BMI result Body Mass Index 25.8 Const General: cooperative, no acute distress, alert and awake Nutritional Appearance: well nourished Orientation/consciousness: patient oriented x3 Limitations: no limitations HENMT Head: Yes normal to inspection and Yes atraumatic Ears: hearing grossly normal bilaterally and external ears normal General nose exam: Normal external nose present, no nasal discharge noted and no epistaxis Face and sinus: Yes normal facial exam, No abrasion and No laceration Mouth: Normal oral and palatal mucosa present, no drooling and no muffled voice Eyes General: appearance normal, both eyes and all related structures Periorbital: periorbital findings normal Eyelids: Yes eyelids normal Conjunctivae: conjunctivae normal Pupils: Equal, round and reactive pupils present EOM: EOMs intact bilaterally Neck Neck: Yes normal visual inspection, Yes full ROM and Yes no lymphadenopathy Chest Chest palpation & inspection: normal inspection of the chest Resp Effort & Inspection: normal respiratory effort and able to speak in complete sentences GI Inspection: Yes normal to inspection Neuro General: patient oriented x3 and moves all extremities Cranial nerves: Yes Equal, round and reactive pupils present Cognition (Neuro): normal cognition Motor exam (neuro): 5/5 motor strength present throughout Sensory Exam: Normal double simultaneous stimulation for sensation Coordination: [id number] test normal Extrem General: Yes normal to inspection, Yes full ROM and Yes capillary refill normal Psych Appearance: grossly normal Mental Status: mental status grossly normal Affect: normal affect Attitude: cooperative Thought process: Normal thought process present Thought content: Normal thought content present Insight: Good insight present (Psych) Course Course Course Narrative: RME: RME done by MARY ELLEN alvarado. Patient presents to the ED for falling after tripping while coming out the elevator. patient fell flat on her face and lower middle tooth came out. patient states bilateral hip and shoulder pain. Patient had bilateral hip and shoulder tenderness on palpation. Lower molar tooth missing. Patient is sent for imaging Medications Administered Discontinued Medications Generic Name Dose Route Start Last Admin Trade Name Freq PRN Reason Stop Dose Admin Oxycodone HCl 10 mg 02/21/24 19:30 02/21/24 19:46 Oxycodone Hcl Immed Release 5 Mg Tablet PO 02/21/24 19:31 10 mg ONCE ONE Administration Procedures Orthopedic Splinting/Casting Injury #1: Side: left Upper Extremity Injury Location: shoulder Upper Extremity Immobilizer: sling/shoulder immobilizer Medical Decision Making Medical Decision Making MDM Narrative: Patient is a 63 year old assigned female at with a history of a right clavicle fracture and an UT presenting to the emergency department today with bilateral shoulder pain and left hip pain after a fall. Patient's physical exam was unremarkable. Patient's left shoulder x-ray showed acute humerus fracture. Patient's CT head/c-spine/face showed no acute process. I explained my physical exam findings as well as all test results to the patient. I answered all questions asked by the patient. Patient was placed in a sling, without incident. Patient's PMS was intact prior to and after sling placement. I stressed the importance of the patient taking her medication as prescribed. I stressed the importance of the patient following up with her primary care provider and an orthopedic provider. I stressed the importance of the patient returning to the emergency department immediately if her symptoms were to worsen or if she were to develop any dizziness, shortness of breath, difficulty breathing, chest pain, blurry vision, loss of vision, nausea, vomiting, abdominal pain, fever, chills, back pain, or any other complaints. Patient verbalized agreement and understanding with this treatment plan and discharge. Differential Diagnosis Differential Diagnoses: The differential diagnosis associated with the presentation includes Humerus fracture Fall Admission/Observation Consideration of admission/observation: Escalation of care including admission/observation considered Patient would have been admitted to the hospital had her work up had any findings where hospital admission was appropriate and her clinical presentation warranted hospital admission. Independent Interpretation I performed an independent interpretation of an: Plain X-Ray and CT Scan Interpretation: My interpretation is in agreement with the radiologist's impression of these imaging studies. EXAMINATION: CT head/brain wo IV con CT facial bones wo IV con CT cervical spine wo IV con INDICATION INFORMATION: Fall. hit head. tooth came out COMPARISON: CT head/C-spine 09/25/2019 TECHNIQUE: Multidetector CT acquisitions of the head, maxillofacial region, and cervical spine were obtained without IV contrast. Multiplanar reformats were acquired and utilized for image interpretation. This CT examination was performed using dose optimization techniques as appropriate, variously including the following: * Automated exposure control * Adjustment of mA and/or kV according to patient size (this includes techniques or standardized protocols for targeted exams where dose is matched to indication/reason for exam; i.e. extremities or head) Use of iterative reconstruction technique DLP: 1277 mGy-cm FINDINGS: HEAD: There is no evidence of acute intracranial hemorrhage or territorial infarction. No abnormal mass-effect or midline shift is seen. Cortez to white matter differentiation is well preserved. No extra-axial fluid collections are identified. No hydrocephalus. No significant volume loss. Patchy periventricular and deep white matter hypoattenuation is consistent with mild small vessel ischemic changes. No acute soft tissue abnormality. No acute calvarial fracture. The mastoid air cells are well aerated. MAXILLOFACIAL: Dental caries noted in the bilateral maxillary lateral incisor and canine teeth. Absent bilateral mandibular central incisor teeth. No acute maxillofacial fractures are seen. The mandible, maxilla, pterygoid plates, nasal bones, zygomatic arches, paranasal sinus mcwilliams, and bony orbits are intact. The frontal, maxillary, ethmoid, and sphenoid sinuses are well aerated. The uncinate process is normal bilaterally. The infundibula and middle meati are patent. There is a rightward nasal septal deviation. The mandibular heads are well-seated in the condylar fossa. No significant focal soft tissue swelling. The orbits demonstrate a normal appearance bilaterally. The globes are intact, and there are no suspicious findings to suggest retrobulbar hemorrhage. CERVICAL SPINE: There is anatomic alignment of the vertebral bodies and posterior elements. Vertebral body heights and intervertebral disc spaces are maintained. No acute fracture or subluxation. The atlantooccipital and atlantoaxial articulations are normal. The bony canal and neural foramina are well maintained. Mild to moderate multilevel facet arthropathy. There is no prevertebral soft tissue swelling. No significant soft tissue abnormality within the neck. Centrilobular and paraseptal emphysema in the visualized lung apices. CT/CT cervical spine wo IV con IMPRESSION: 1. No acute intracranial abnormality. 2. No acute osseous abnormality within the maxillofacial region. Dental caries as the as described above. Dental consult recommended. 3. No acute osseous abnormality within the cervical spine. Dictated By: Ni Palafox Signed By: Electronically signed by Ni Palafox 02/21/241942 EXAMINATION: CR LEFT SHOULDER. CR RIGHT SHOULDER. CLINICAL INFORMATION: Fall. Shoulder pain. COMPARISON: Right clavicle films dated 04/15/2023. Right shoulder films dated 04/15/2023. TECHNIQUE: 3 views of the left shoulder. 3 views of the right shoulder. FINDINGS: Left shoulder: There is a nondisplaced transverse partially impacted fracture of the left humeral neck extending into the greater tuberosity. No dislocation. Glenohumeral joint and acromioclavicular joints intact. There is prominent nonbursal surface spurring at the acromioclavicular joint. Minimal spurring is seen along the inferior glenohumeral joint. No joint calcifications. Right shoulder: No acute fracture or dislocation. Glenohumeral joint and acromion clavicular joints are intact. Prominent nonpersonal surface spurring is seen at the acromion clavicular joint. No joint calcifications.: Ununited fracture deformity of the left mid clavicle with partial resection seen. Diffuse osteopenia. Old healed fracture deformities of the lateral right third, fourth, fifth, sixth ribs seen. Degenerative changes in the lower cervical spine. XR/XR shoulder RT min 2V IMPRESSION: * Nondisplaced transverse fracture of the left humeral neck extending into the greater tuberosity. * No acute fracture of the right shoulder. * Old healed fracture deformities of the right third through sixth ribs and right clavicle. * Diffuse osteopenia. * Bilateral acromioclavicular joint degenerative changes. Dictated By: Blanca Keyes MD Signed By: Electronically signed by Blanca Keyes MD 02/21/241901 EXAMINATION: XR BILATERAL HIPS WITH AP PELVIS CLINICAL INFORMATION: Fall bilateral hip pain COMPARISON: Bilateral hip radiograph from 09/25/2019 TECHNIQUE: Single view the pelvis 2 views of each hip FINDINGS: No acute visible fracture or dislocation. Degenerative arthropathy of the bilateral femoral acetabular joint. Degenerative changes of the lumbosacral spine. Sclerotic focus base of the right femoral neck measuring 9 mm potentially representing a bone island. Joint spaces and alignment are otherwise maintained. Pelvic phleboliths. Calcific focus in the pelvis potentially representing a calcified uterine fibroid. XR/XR hip BI w PEL1V IMPRESSION: 1. No acute visible fracture or dislocation. 2. Degenerative arthropathy of the bilateral femoral acetabular joint. Dictated By: Mely Vogt MD Signed By: Electronically signed by Mely Vogt MD 02/21/24 [id number] Radiology Impression Discussion of test interpretation with radiology: I have reviewed the radiologist's reading. Prescription Management I considered prescription management with: Pain Medication (patient prescribed pain medication) Discharge Plan Discharge Clinical Impression: Fracture, humerus Patient Disposition: Home, Self-Care Instructions: Arm Fracture in Adults (ED), How to Use a Sling (ED) Additional Instructions: Your work up showed a broken left humerus (upper arm). You should stay in the sling until you follow up with the orthopedic provider. Every hour you can extend your elbow. Follow up with your primary care provider and an orthopedic provider. Return to the emergency department immediately if your symptoms worsen or if you develop any dizziness, shortness of breath, difficulty breathing, chest pain, blurry vision, loss of vision, nausea, vomiting, abdominal pain, fever, chills, back pain, or any other complaints. Prescriptions: New oxycodone 5 mg tablet 5 mg PO Q6H PRN (Reason: pain) Qty: 3 0RF Rx Instructions: Partial Fill upon patient request. oxycodone 5 mg tablet 5 mg PO Q6H PRN (Reason: pain) Qty: 3 0RF Rx Instructions: Partial Fill upon patient request. No Action azithromycin 250 mg tablet 250 mg PO DAILY Qty: 4 0RF oxycodone 5 mg tablet 5 mg PO Q6H PRN (Reason: pain) Qty: 14 0RF Rx Instructions: Partial Fill upon patient request. acetaminophen 500 mg tablet 1,000 mg PO QID PRN (Reason: pain) Qty: 30 0RF oxycodone 5 mg tablet 5 mg PO DAILY PRN (Reason: pain) 2 Days Qty: 5 0RF Rx Instructions: Partial Fill upon patient request. Referrals: [facility] [Provider Group] (Call to establish and follow up with an orthopedic provider. ) Nicole Haro NP [Primary Care Provider] - Interventions: ED Discharge Assessment Last Done: 02/21/24 20:08 Discharge Date/Time: 02/21/24 20:09 Print Language: Sami
[2024-02-21 19:15] VITALS: BP 134/86; PULSE 84; RESP 20; TEMP 36.8; O2SAT 97
[2024-02-21] MEDS: oxyCODONE HCl Immed Release 5 MG TABLET 10 MG PO (19:46)
[2024-02-21 20:08] VITALS: BP 134/86; PULSE 84; RESP 20; TEMP 36.8; O2SAT 97
== END 2024-02-21 20:09 | disposition home or self-care (01) ==
PROVIDERS: Emergency Provider Internal Medicine; PCP Nurse Practitioner Adult Health
DX: S42.212A Unspecified displaced fracture of surgical neck of left humerus, initial encounter for closed fracture (principal); W01.0XXA Fall on same level from slipping, tripping and stumbling without subsequent striking against object, initial encounter; Y93.89 Activity, other specified; Y92.9 Unspecified place or not applicable; Y99.9 Unspecified external cause status; M25.552 Pain in left hip; M25.551 Pain in right hip; M25.512 Pain in left shoulder; M25.511 Pain in right shoulder; S09.90XA Unspecified injury of head, initial encounter
CPT/HCPCS: 70450; 70486; 72125; 73030; 73521; 99283; 99284

== ENCOUNTER 2024-03-07 10:37 | Outpatient (REF) | payer OTHER, SELFPAY ==
--- NOTE | ~2024-03-07 | XR_ITS ---
EXAMINATION: XR SHOULDER, LEFT CLINICAL INFORMATION: Humeral neck fracture. COMPARISON: Prior x-ray 02/21/2024. TECHNIQUE: Two views of the left shoulder. FINDINGS: On the AP view, the humerus is externally rotated in positioning. There is limited visualization/evaluation of the known humeral neck fracture extending to the greater tuberosity. Limited evaluation of the glenohumeral joint space. On the provided views, no new acute fractures seen. Moderate acromioclavicular arthritis. There appears to bone demineralization. No suspicious soft tissue calcification. Study presented for dictation on 03/23/2024. XR/XR shoulder LT min 2V IMPRESSION: Suboptimal visualization/evaluation of the known and previously documented nondisplaced fracture of the left humeral neck extending into the greater tuberosity.
== END 2024-03-07 10:38 | disposition home or self-care (01) ==
LOC: HO.HOSX 10:37
DX: S42.295A Other nondisplaced fracture of upper end of left humerus, initial encounter for closed fracture (principal)
CPT/HCPCS: 73030; 99202

== ENCOUNTER 2024-03-07 13:06 | Outpatient (AMB) | payer OTHER, SELFPAY ==
--- NOTE | 2024-03-07 13:10 | A.OFFVIS_ITS ---
Vital Signs 03/07/24 13:14 Height 5 ft 9 in Weight 175 lb BMI 25.8 Intake Visit Reasons: ED f/u LT humeral fx, DOI 02/21/24 Intake Note: Latia a 63 year old right hand dominant female who presents today for an ER follow up of left humeral fracture, DOI 12/23/23. Patient reports having a fall causing injury to her left hip and bilateral shoulder. She presented to [facility] where xrays were taken, she was called about 3 weeks ago informing her of humerus fracture. Her main concern is the pain located at the lateral aspect of lower leg that radiates up to her hip. She has constant swelling in her leg that is mostly from the knee down. No other tx. She is unable to take ibuprofen due to kidney condition. Limited ROM in bilateral arm making it difficult for AODL. Allergies bee pollen [BEE STINGS] Allergy (Severe, Verified 03/07/24 13:37) ANAPHYLAXIS Penicillins Allergy (Mild, Verified 03/07/24 13:37) RASH Sulfa (Sulfonamide Antibiotics) Allergy (Mild, Verified 03/07/24 13:37) RASH Bee stings Allergy (Unknown, Uncoded 03/07/24 13:37) Unknown Penicillins Allergy (Unknown, Uncoded 03/07/24 13:37) Unknown Sulfar Allergy (Unknown, Uncoded 03/07/24 13:37) Unknown HPI HPI ED f/u LT humeral fx, DOI 02/21/24: Details: Patient is a 63-year-old female who presents for ED follow-up of left proximal humerus fracture, date of injury approximately 12/19/2023. Patient states that she tripped and fell out of an elevator, and immediately began experiencing left shoulder pain. Patient states that she was originally evaluated at [facility] at time of injury, and was told that she had no fracture. However she states that she was called by a provider at [facility] stating that she had a fracture, and that she should come in for treatment. However, she reports that she was unable to get a hold of this provider, and due to the long wait time at [facility] ED, she presented to the [facility] ED. While being evaluated in the ED on 02/21/2024, x-rays were taken revealing a minimally displaced left proximal humerus fracture with signs of healing, and she was placed in a sling. Today, the patient reports that she continues to experience pain and limited range of motion in both shoulders, as well as pain in her left leg that she describes as shooting and burning with associated numbness from her ankle up into her buttocks and lower back. Patient reports that she had a clavicle fracture early last year, and that surgery that was performed at that time failed. She reports that she has significant restrictions in her activities of daily living, and that she is unable to put on jewelry or fix her hair. She also reports that she has been walking with a cane, due to nervousness about the pain in her leg. [facility] Medical History (Updated 03/07/24 @ 14:15 by MARY ELLEN Krishnamurthy) Gallbladder & bile duct stone with obstruction Myocardial infarction Surgical History (Updated 03/07/24 @ 13:28 by NAVI Durán) Hx of shoulder surgery Hx of cholecystectomy Social History (Updated 03/07/24 @ 13:29 by NAVI Durán) Alcohol intake: unknown Patient Tobacco Use Status: Current everyday Tobacco user Current occupational status: unemployed Current occupation: right hand dominant Review of Systems Const All systems reviewed & are unremarkable except as noted in HPI and below Physical Exam Vital Signs: BMI result Body Mass Index 25.8 Const Other: Patient is alert, oriented, cooperative, and in no acute distress HEENT Head: Yes normocephalic and Yes atraumatic Resp Effort & Inspection: able to speak in complete sentences and uses accessory muscles Cardio Jugular venous distension: no JVD Neuro General: gait normal Cognition (Neuro): normal cognition Extrem Other: On inspection, there is no erythema, ecchymosis, or edema of the left shoulder In the right shoulder, there is a visible and palpable give it over the area of her old clavicle fracture. Patient reports mild tenderness to palpation of the left shoulder Patient is able to forward flex to approximately 75-80 degrees and on the left, however she reports significant pain with this in the posterior shoulder and proximal left arm Patient is able to forward flex to approximately 90 degrees on the right, however she reports significant pain with this in the posterior shoulder and proximal right arm ROM of the left elbow, wrist, and fingers full and intact NVI. Psych Appearance: grossly normal Mental Status: mental status grossly normal Results Reviewed Results Reviewed: X-rays obtained in the office today and independently reviewed by , Piero Trujillo PA-C, demonstrate minimally displaced fracture of the left proximal humerus, with interval healing. Assessment & Plan Assessment & Plan (1) Fracture, humerus: Code(s): S42.309A - Unspecified fracture of shaft of humerus, unspecified arm, initial encounter for closed fracture Category: Medical Qualifiers: Encounter type: initial encounter Humerus Location: proximal Fracture type: closed Fracture alignment: nondisplaced Laterality: left Fracture morphology: other fracture Qualified Code(s): S42.295A - Other nondisplaced fracture of upper end of left humerus, initial encounter for closed fracture Plan 1. Left proximal humerus fracture 2. Pain in left shoulder At this time, patient can be removed from sling and is encouraged to continue with regular range of motion in the left wrist, fingers, and elbow. Patient will be referred to physical therapy for range of motion and gentle strengthening of the shoulder 3. Pain in right shoulder Patient referred to outpatient physical therapy for range of motion and gentle strengthening of bilateral shoulders 4. Pain in left leg Symptoms (shooting, burning pain associated with numbness from the ankle to the buttock and lower back) described by patient appear to be more nervous in origin than musculoskeletal. Patient not interested in going to ED for evaluation of leg pain at this time Patient is encouraged to call primary care provider for evaluation of leg pain No scheduled follow-up necessary, patient can follow-up p.r.n. with any acute concerns Orders: Orders XR shoulder LT min 2V Today M25.512 - Pain in left shoulder PT Evaluation and Treatment Today M25.511 - Pain in right shoulder, M25.512 - Pain in left shoulder, S42.309A - Unspecified fracture of shaft of humerus, unspecified arm, initial encounter for closed fracture Coding Level of Care Code New Pt Level 4 (43619) Diagnoses Other closed nondisplaced fracture of proximal end of left humerus, initial encounter S42.295A Encounter type: initial encounter Humerus Location: proximal Fracture type: closed Fracture alignment: nondisplaced Laterality: left Fracture morphology: other fracture Time Spent (min) 40
[2024-03-07 13:14] VITALS: BMI 25.8
== END 2024-03-07 13:58 | disposition home or self-care (01) ==
PROVIDERS: PCP Nurse Practitioner Adult Health
DX: S42.295A Other nondisplaced fracture of upper end of left humerus, initial encounter for closed fracture (principal)
CPT/HCPCS: 99203

== ENCOUNTER 2024-04-25 10:31 | Emergency (ER) | payer OTHER, SELFPAY ==
--- NOTE | ~2024-04-25 | US_ITS ---
EXAMINATION: US TRIPLEX LOWER EXTREMITY, LEFT CLINICAL INFORMATION: Left calf pain COMPARISON: None available. TECHNIQUE: Color-flow triplex imaging with spectral analysis and compression Doppler were performed on the left lower extremity. FINDINGS: Respiratory variation, normal compression and augmented flow are noted throughout the left lower extremity. The visualized common femoral vein, superficial femoral vein, profunda femoral vein, popliteal vein and midcalf peroneal and posterior tibial venous segments show no evidence of deep venous thrombosis. There is no Sewell's cyst. US/US venous duplex LE LT IMPRESSION: No evidence of deep venous thrombosis involving the left lower extremity. Electronically signed by: Devang Paz MD 04/25/2024 01:16 PM EDT RP
[2024-04-25 10:40] VITALS: BP 126/74; PULSE 95; O2SAT 96
[2024-04-25 10:45] VITALS: BP 139/86; PULSE 96; RESP 18; TEMP 36.6; O2SAT 96; BMI 22.6
[2024-04-25 10:58] LABS: MANUAL DIFF FLAG NO
[2024-04-25 11:01] LABS: Basophils Absolute Auto 0.1 X10*3/uL (0.0-0.2); Eosinophils Absolute Auto 0.2 X10*3/uL (0.0-0.4); Eosinophils Percent Auto 1.7 % (0-4); Hematocrit 43.5 % (37.0-47.0); Hemoglobin 14.8 g/dl (12.0-16.0); Imm Gran Abs Auto 0.04 X10*3/uL (0.00-0.03); Imm Gran Pct Auto 0.4 % (0.0-0.4); Lymphocytes Absolute Auto 3.7 X10*3/uL (1.2-4.9); Lymphocytes Percent Auto 39.9 % (20-40); Mean Corpuscular Hemoglobin 30.7 pg (27.0-33.0); Mean Corpuscular Volume 90.2 fL (80.0-98.0); Mean Platelet Volume 10.1 fL (9.4-12.3); Monocytes Absolute Auto 0.6 X10*3/uL (0.1-1.2); Monocytes Percent Auto 6.9 % (2-11); Neutrophils Absolute Auto 4.7 x10*3/uL (2.0-8.3); Neutrophils Percent Auto 50.1 % (45-73); Platelet Count 316 X10*3/uL (160-400); Red Blood Count 4.82 X10*6/uL (4.20-5.50); Red Cell Distribution Width 14.8 % (11.0-16.0); White Blood Count 9.3 X10*3/uL (4.8-10.8)
[2024-04-25 11:05] LABS: INTERNATIONAL NORM RATIO 0.9 (0.9-1.1)
[2024-04-25 11:23] LABS: Alanine Aminotransferase 11 U/L (0-31); Albumin Level 4.1 g/dL (3.5-5.0); Alkaline Phosphatase 87 U/L (39-117); Anion Gap 15 (12-20); Aspartate Amino Transferase 11 U/L (5-31); Bilirubin Total 0.3 mg/dL (0.0-1.0); Blood Urea Nitrogen 19 mg/dL (9-16); Calcium 10.2 mg/dL (8.4-10.2); Carbon Dioxide 18 mmol/L (22-29); Chloride 108 mmol/L (96-108); Creatinine Clr Calc Pharmacy 42.8; Estimated Glomerular Filt Rate 40; Glucose Random 263 mg/dL (60-115); Potassium 4.6 mmol/L (3.3-5.1); Sodium 136 mmol/L (135-145); Total Protein 7.8 g/dL (6.5-8.0)
--- NOTE | 2024-04-25 11:37 | ED.GENADULT ---
HPI - General Adult General Chief complaint: Extremity Injury, Lower Stated complaint: LEG PAIN PER EMS Time Seen by Provider: 04/25/24 11:37 Source: patient Mode of arrival: wheelchair Limitations: no limitations History of Present Illness ED Provider: hedy HPI narrative: Patient is a 63-year-old female with history of [place], DM, neuropathy presenting to the emergency department with complaint of atraumatic left leg pain for the past 3 days. Denies fall or other injury. States the pain his from her toes of her left foot all the way up through her left thigh. She has concern for a blood clot, denies history of DVT in the past. States pain is so severe she is unable to put her foot on the floor. Denies chest pain, palpitations, shortness of breath. Denies recent travel, surgery, or immobilization. MD complaint: left leg pain Onset (ago): day(s) Location: left and lower extremity Severity: severe Quality: aching Pain Consistency: constant Relieving factors: rest Exacerbating factors: movement Associated symptoms: denies other symptoms Treatments prior to arrival: none Related Data Home Medications ?Medication ?Instructions ?Recorded ?Confirmed atorvastatin 80 mg tablet 80 mg PO DAILY 03/07/24 cholecalciferol (vitamin D3) 1,250 PO 03/07/24 mcg (50,000 unit) capsule clonazepam 2 mg tablet 2 mg PO TID PRN 03/07/24 glimepiride 4 mg tablet 4 mg PO BID 03/07/24 insulin degludec 100 unit/mL (3 unit subcut 03/07/24 mL) subcutaneous pen (Tresiba FlexTouch U-100 insulin) loratadine 10 mg tablet 10 mg PO DAILY 03/07/24 mirtazapine 15 mg tablet 15 mg PO BEDTIME 03/07/24 omeprazole 20 mg capsule,delayed 20 mg PO BID 03/07/24 release Previous Rx's ?Medication ?Instructions ?Recorded azithromycin 250 mg tablet 250 mg PO DAILY #4 tabs 02/23/21 acetaminophen 500 mg tablet 1,000 mg (2 x 500 mg) PO QID PRN 12/21/22 pain #30 tabs oxycodone 5 mg tablet 5 mg PO Q6H PRN pain #14 tabs 12/21/22 oxycodone 5 mg tablet 5 mg PO DAILY PRN pain 2 days #5 04/15/23 tabs oxycodone 5 mg tablet 5 mg PO Q6H PRN pain #3 tabs 02/21/24 oxycodone 5 mg tablet 5 mg PO Q6H PRN pain #3 tabs 02/21/24 Allergies Allergy/AdvReac Type Severity Reaction Status Date / Time bee pollen [BEE STINGS] Allergy Severe ANAPHYLAXIS Verified 04/25/24 10:46 Penicillins Allergy Mild RASH Verified 04/25/24 10:46 Sulfa (Sulfonamide Allergy Mild RASH Verified 04/25/24 10:46 Antibiotics) Bee stings Allergy Unknown Unknown Uncoded 03/07/24 13:37 Penicillins Allergy Unknown Unknown Uncoded 03/07/24 13:37 Sulfar Allergy Unknown Unknown Uncoded 03/07/24 13:37 Review of Systems Review of Systems: As per HPI. Yes all other systems are reviewed and are negative Constitutional: Constitutional: Reports as per HPI [facility] Past Medical History Medical History (Updated 04/25/24 @ 13:12 by Mecca Wong NP) Gallbladder & bile duct stone with obstruction Myocardial infarction Surgical History (Updated 03/07/24 @ 13:28 by NAVI Durán) Hx of shoulder surgery Hx of cholecystectomy Social History Social History (Updated 03/07/24 @ 13:29 by NAVI Durán) Alcohol intake: unknown Patient Tobacco Use Status: Current everyday Tobacco user Advance Directives: No Advance Directives Information Provided: No Do you have a plan to hurt others: No Plan Current occupational status: unemployed Current occupation: right hand dominant Physical Exam ED Vital Signs: Vital Signs - 24 hr 04/25/24 10:45 04/25/24 13:07 Temperature 97.8 F 97.5 F Pulse Rate 96 96 Respiratory Rate 18 18 Blood Pressure 139/86 140/86 H Pulse Oximetry 96 97 Oxygen Delivery Method Room Air Room Air BMI result Body Mass Index 22.6 Vital signs have been reviewed and appear to be correct. Blood pressure normal. Heart rate normal. Respiratory rate normal. Temperature normal. Oxygen saturation normal. Const General: cooperative, healthy appearing and no acute distress Orientation/consciousness: oriented to person, oriented to place, oriented to time and patient oriented x3 Limitations: no limitations HENMT Head: Yes normocephalic and Yes atraumatic Ears: external ears normal General nose exam: Normal external nose present Face and sinus: Yes face symmetric Mouth: oropharynx normal and moist mucous membranes Throat: Yes uvula midline Eyes Pupils: Equal, round and reactive pupils present Neck Neck: Yes normal visual inspection and Yes supple Resp Effort & Inspection: normal respiratory effort and able to speak in complete sentences Auscultation: clear to auscultation bilaterally Cardio Rate: regular rate Rhythm: regular rhythm Heart sounds: S1 normal heart sound present and S2 normal heart sound present GI Palpation (GI): Soft to palpation and nontender Auscultation: normoactive bowel sounds General: Yes no CVA tenderness Back/Spine/Pelvis Back: no CVA tenderness Skin Other: erythema and excoriation noted to right groin General skin exam: elasticity normal and turgor normal Neuro General: oriented to person, oriented to place, oriented to time, patient oriented x3, moves all extremities, no focal motor deficits and CN's II-XI intact bilaterally Cranial nerves: Yes Equal, round and reactive pupils present Cognition (Neuro): normal cognition Extrem General: Yes full ROM, Yes normal exam except as noted, Yes no pedal edema and Yes no calf tenderness Left lower extremity: normal to inspection, full ROM, normal capillary refill, lower leg Details: no edema; no erythema, no localized swelling, no palpable cords, no ecchymosis and no unusual warmth and foot Details: vascular exam Details: dorsalis pedis pulse present, posterior tibial pulse present and normal capillary refill Psych Mental Status: mental status grossly normal Affect: normal affect Thought process: Normal thought process present Medical Decision Making Medical Decision Making [facility] Narrative: Patient is a 63-year-old female with history of [place] presenting to the emergency department with complaint of atraumatic left leg pain for the past 3 days. On exam patient is awake, A+Ox3, VS WNL, afebrile, normal neurological exam without focal deficits, physical exam findings as above. Given reported symptoms and physical exam findings, initial differential includes DVT, neuropathic pain. Labs notable for no leukocytosis, no anemia, elevated glucose without anion gap. Ultrasound notable for no evidence of DVT. My interpretation is in agreement with the radiologist's interpretation. Patient also complaining of rash to right groin area, nystatin cream ordered. Notified by RN that patient left ED without completing treatment. Differential Diagnosis Differential Diagnoses: The differential diagnosis associated with the presentation includes As per [facility]. Lab Data [facility] Lab Attestation statement: I reviewed the patient's lab results. As per MDM. 04/25/24 10:54 04/25/24 10:54 Labs: Lab Results 04/25/24 Range/Units 10:54 WBC 9.3 (4.8-10.8) X10*3/uL RBC 4.82 (4.20-5.50) X10*6/uL Hgb 14.8 (12.0-16.0) g/dl Hct 43.5 (37.0-47.0) % MCV 90.2 (80.0-98.0) fL MCH 30.7 (27.0-33.0) pg MCHC 34.0 (31.0-35.0) g/dl RDW 14.8 (11.0-16.0) % Plt Count 316 (160-400) X10*3/uL MPV 10.1 (9.4-12.3) fL Immature Gran % (Auto) 0.4 (0.0-0.4) % Neut % (Auto) 50.1 (45-73) % Lymph % (Auto) 39.9 (20-40) % Becker % (Auto) 6.9 (2-11) % Eos % (Auto) 1.7 (0-4) % Baso % (Auto) 1.0 (0-2) % Lymph # (Auto) 3.7 (1.2-4.9) X10*3/uL Becker # (Auto) 0.6 (0.1-1.2) X10*3/uL Eos # (Auto) 0.2 (0.0-0.4) X10*3/uL Baso # (Auto) 0.1 (0.0-0.2) X10*3/uL Abs Immat Gran (auto) 0.04 H (0.00-0.03) X10*3/uL Absolute Neuts (auto) 4.7 (2.0-8.3) x10*3/uL Absolute Nucleated RBC 0.000 (0.0-0.012) X10*3/uL Nucleated RBC % (auto) 0.0 (0.0-0.2) /100WBC PT 11.0 L (11.1-13.3) SEC INR 0.9 (0.9-1.1) Sodium 136 (135-145) mmol/L Potassium 4.6 (3.3-5.1) mmol/L Chloride 108 (96-108) mmol/L Carbon Dioxide 18 L (22-29) mmol/L Anion Gap 15 (12-20) BUN 19 H (9-16) mg/dL Creatinine 1.34 (0.5-1.4) mg/dL Estim Creat Clear Calc 42.8 Estimated GFR 40 Random Glucose 263 H (60-115) mg/dL Calcium 10.2 (8.4-10.2) mg/dL Total Bilirubin 0.3 (0.0-1.0) mg/dL AST 11 (5-31) U/L ALT 11 (0-31) U/L Alkaline Phosphatase 87 (39-117) U/L Total Protein 7.8 (6.5-8.0) g/dL Albumin 4.1 (3.5-5.0) g/dL Independent Interpretation I performed an independent interpretation of an: Ultrasound (No evidence of DVT to left lower extremity on ultrasound) Radiology Impression Discussion of test interpretation with radiology: I have reviewed the radiologist's reading. Radiologist Impression: US/US venous duplex LE LT IMPRESSION: No evidence of deep venous thrombosis involving the left lower extremity. External Record Review External record reviewed: Inpatient record, Office record and Outpatient record Discharge Plan Discharge Clinical Impression: Leg pain, left Patient Disposition: Left W/O Completing Treatment Prescriptions: No Action azithromycin 250 mg tablet 250 mg PO DAILY Qty: 4 0RF oxycodone 5 mg tablet 5 mg PO Q6H PRN (Reason: pain) Qty: 14 0RF Rx Instructions: Partial Fill upon patient request. acetaminophen 500 mg tablet 1,000 mg PO QID PRN (Reason: pain) Qty: 30 0RF oxycodone 5 mg tablet 5 mg PO DAILY PRN (Reason: pain) 2 Days Qty: 5 0RF Rx Instructions: Partial Fill upon patient request. oxycodone 5 mg tablet 5 mg PO Q6H PRN (Reason: pain) Qty: 3 0RF Rx Instructions: Partial Fill upon patient request. oxycodone 5 mg tablet 5 mg PO Q6H PRN (Reason: pain) Qty: 3 0RF Rx Instructions: Partial Fill upon patient request. atorvastatin 80 mg tablet 80 mg PO DAILY insulin degludec [Tresiba FlexTouch U-100] 100 unit/mL (3 mL) insulin pen subcut glimepiride 4 mg tablet 4 mg PO BID loratadine 10 mg tablet 10 mg PO DAILY clonazepam 2 mg tablet 2 mg PO TID PRN mirtazapine 15 mg tablet 15 mg PO BEDTIME cholecalciferol (vitamin D3) 1,250 mcg (50,000 unit) capsule PO omeprazole 20 mg capsule,delayed release(DR/EC) 20 mg PO BID
[2024-04-25 13:07] VITALS: BP 140/86; PULSE 96; RESP 18; TEMP 36.4; O2SAT 97
--- NOTE | 2024-04-25 13:21 | PC.NURSE ---
pt continuously attempting to get leave without completing treatment. pt redirected to go back to room multiple times. pt verbalizing she does not want to wait for ultrasound results or receive nystatin cream that was ordered by the provider. pt decided to leave without completing treatment. did not sign discharge paperwork.
[2024-04-25 13:30] VITALS: BP 140/86; PULSE 96; RESP 18; TEMP 36.4; O2SAT 97
== END 2024-04-25 13:30 | disposition left against medical advice (07) ==
PROVIDERS: Emergency Provider Emergency Medicine; PCP Nurse Practitioner Adult Health
DX: M79.605 Pain in left leg (principal); R60.0 Localized edema; F17.210 Nicotine dependence, cigarettes, uncomplicated; Z79.899 Other long term (current) drug therapy
CPT/HCPCS: 36415; 80053; 85025; 85610; 93971; 99283; 99284

== ENCOUNTER 2024-05-15 12:40 | Emergency (ER) | payer OTHER, SELFPAY ==
--- NOTE | ~2024-05-15 | CT_ITS ---
EXAMINATION: CT brain, CT facial bones and CT cervical spine without contrast. CLINICAL INDICATION: Fall. Left periorbital swelling.. Head strike. COMPARISON: CT brain, facial bones and cervical spine 02/21/2024. 2.5 to Reformatted 3 no limited thin sagittal and coronal images of brain were obtained. Axial 3 mm and reformatted 1.5 in sagittal coronal images of facial bones were obtained. Lastly 3 mm dense axial and reformatted 1.5 mm thin sagittal and coronal images of cervical spine were obtained. CT PET dose 1277. This CT examination was performed using dose optimization technique as appropriate, variously including the following: Automated exposure control Adjustment of MA and/or KV according to patient size(this includes techniques or standardized protocols for targeted exams where dose is matched to indication/reason for exam; extremities or head. Use of iterative reconstruction techniques. FINDINGS: Drains: Brain: There is no acute intra-axial, extra-axial bleed, masses or midline shift. There is no acute infarction evolution. There is no edema. The lateral ventricles are symmetric in size and configuration without enlargement. Bone windows reveal no calvarial abnormality. Bilateral paranasal sinuses and mastoid air cells are well-aerated. Facial bones: The paranasal sinuses are dilated with mild mucoperiosteal thickening right maxillary sinus. Rest of the paranasal sinuses are clear. Bony sinus mcwilliams are intact. The nasal bone is intact without any fracture. There is normal symmetrical bilateral optic globes, optic nerve and periorbital soft tissues. The orbits are normal. Bilateral TM joint and the mandible is normal. The maxillofacial bones are intact. There is bilateral dental caries present. The maxillofacial soft tissues are normal. Cervical spine: There is maintained cervical lordosis. The vertebral heights, alignment and disc heights are normal. There is a craniovertebral junction and C1-C2 alignment is normal. There is no visible acute fracture, dislocation or subluxation seen. The prevertebral and paravertebral soft tissues are normal. There is moderate left C3-4 and C4-5 degenerative facet joint arthropathy and hypertrophy. There is mild emphysema along both lung apices. CT/CT cervical spine wo IV con IMPRESSION: No acute intracranial abnormality seen. There is no maxillofacial, nasal or mandibular fracture or soft tissue swelling. No acute fracture or dislocation in cervical spine. Electronically signed by: Philip Ott MD 05/15/2024 04:01 PM EDT RP
--- NOTE | ~2024-05-15 | XR_ITS ---
EXAMINATION: XR ANKLE, RIGHT CLINICAL INFORMATION: Right ankle pain COMPARISON: None available. TECHNIQUE: AP, lateral, and mortise views of the right ankle. FINDINGS: No fracture. Alignment is anatomic. No erosions. Joint spaces are maintained. Soft tissues are normal. XR/XR ankle RT 2V IMPRESSION: Normal right ankle. Electronically signed by: Devang Paz MD 05/15/2024 02:03 PM EDT RP
[2024-05-15 12:57] VITALS: BP 139/72; PULSE 103; RESP 16; TEMP 36.4; O2SAT 95; BMI 21.7
--- NOTE | 2024-05-15 13:16 | PC.NURSE ---
patient from home after mechanical fall, states she was taking the trash out and when she came back inside she tripped over the door frame, initially denied head strike for EMS, upon assessment patient complaining of pain over left eyebrow states she think she struck her head, small hematoma noted above left eye, patient denies blood thinners, unsure if she lost consciousness. patient complaining of pain to right ankle, CMS+, some pain and weakness with dorsiflexion. patient also complains of left leg pain that she was seen here for recently and had negative workup for. patient VSS, xray completed at bedside, awaiting MD evaluation
[2024-05-15 14:25] VITALS: BP 147/76; PULSE 92; RESP 12; O2SAT 97
--- NOTE | 2024-05-15 14:54 | ED_ITS ---
HPI - Fall General Chief Complaint: Fall Stated Complaint: FALL ANKLE INJURY Time Seen by Provider: 05/15/24 14:40 Source: patient and EMS Mode of arrival: EMS Limitations: no limitations History of Present Illness ED Provider: Maira Mahmood PA-C HPI Narrative: 63-year-old female with history of NV, active smoker, history of diabetes with neuropathy, who presents to the ER via EMS for evaluation of severe right ankle pain after she tripped and fell this morning. She also reports she hit her head on the door frame resulting in swelling and tenderness above the left eyebrow. She did not lose consciousness. She is on anticoagulation. She states she is unable to ambulate or bear weight on her right foot. There is no swelling or deformity. She denies any preceding chest pain, dizziness or lightheadedness. She states she was recently here for pain in her left leg, had a negative lower extremity Doppler but ended up leaving without completing treatment. Patient is complaining of a mild generalized headache, pain above the left eye. No pain with eye movements. She reports pain in the entire left ankle, worse with plantar flexion and dorsiflexion. No open wounds. MD complaint: fall Onset (ago): minute(s) Fall from: standing Fall witnessed: no Place fall occurred: home Loss of consciousness: none Symptoms prior to fall: none Context: tripped/slipped Location of injury: face Location of injury - extremities: left: ankle Severity: severe Quality: sharp Associated symptoms (after fall): headache Related Data Home Medications ?Medication ?Instructions ?Recorded ?Confirmed atorvastatin 80 mg tablet 80 mg PO DAILY 03/07/24 cholecalciferol (vitamin D3) 1,250 PO 03/07/24 mcg (50,000 unit) capsule clonazepam 2 mg tablet 2 mg PO TID PRN 03/07/24 glimepiride 4 mg tablet 4 mg PO BID 03/07/24 insulin degludec 100 unit/mL (3 unit subcut 03/07/24 mL) subcutaneous pen (Tresiba FlexTouch U-100 insulin) loratadine 10 mg tablet 10 mg PO DAILY 03/07/24 mirtazapine 15 mg tablet 15 mg PO BEDTIME 03/07/24 omeprazole 20 mg capsule,delayed 20 mg PO BID 03/07/24 release Previous Rx's ?Medication ?Instructions ?Recorded azithromycin 250 mg tablet 250 mg PO DAILY #4 tabs 02/23/21 acetaminophen 500 mg tablet 1,000 mg (2 x 500 mg) PO QID PRN 12/21/22 pain #30 tabs oxycodone 5 mg tablet 5 mg PO Q6H PRN pain #14 tabs 12/21/22 oxycodone 5 mg tablet 5 mg PO DAILY PRN pain 2 days #5 04/15/23 tabs oxycodone 5 mg tablet 5 mg PO Q6H PRN pain #3 tabs 02/21/24 oxycodone 5 mg tablet 5 mg PO Q6H PRN pain #3 tabs 02/21/24 Allergies Allergy/AdvReac Type Severity Reaction Status Date / Time bee pollen [BEE STINGS] Allergy Severe ANAPHYLAXIS Verified 05/15/24 13:01 Penicillins Allergy Mild RASH Verified 05/15/24 13:01 Sulfa (Sulfonamide Allergy Mild RASH Verified 05/15/24 13:01 Antibiotics) Bee stings Allergy Unknown Unknown Uncoded 05/15/24 13:01 Penicillins Allergy Unknown Unknown Uncoded 05/15/24 13:01 Sulfar Allergy Unknown Unknown Uncoded 05/15/24 13:01 Review of Systems Review of Systems: Yes all other systems are reviewed and are negative [facility] Past Medical History Medical History (Updated 05/16/24 @ 00:00 by Rosa Lang) Gallbladder & bile duct stone with obstruction Myocardial infarction Surgical History (Updated 03/07/24 @ 13:28 by NAVI Durán) Hx of shoulder surgery Hx of cholecystectomy Social History Social History (Updated 03/07/24 @ 13:29 by NAVI Durán) Alcohol intake: unknown Patient Tobacco Use Status: Current everyday Tobacco user Advance Directives: Yes Advance Directives Information Provided: Yes Advance Directives on File: No Current occupational status: unemployed Current occupation: right hand dominant Physical Exam Vital Signs: Vital Signs: Last Vital Signs Temp 97.9 F 05/15/24 16:36 Pulse 95 05/15/24 16:36 Resp 18 05/15/24 16:36 BP 147/91 H 05/15/24 16:36 Pulse Ox 96 05/15/24 16:36 O2 Del Method Room Air 05/15/24 16:36 BMI result Body Mass Index 21.7 Appearance: Alert. Oriented X3. No acute distress. Smells of cigarette smoke Head: normocephalic, left periorbital area with mild swelling and edema, early ecchymosis. Eyes: Pupils equal, round and reactive to light. Extraocular movements are intact ENT: Pharynx normal. No tonsillar swelling or exudate. Neck: Normal inspection. Neck supple. No midline tenderness or step-off deformities CVS: Normal heart rate and rhythm. Pulses normal. Respiratory: No respiratory distress. Breath sounds normal. Abdomen: Soft and nontender. +BS x4 Skin: Skin warm and dry. Normal skin color. Normal skin turgor. No rashes. Extremities: No lower extremity edema. No joint swelling. Lower extremities are cool to touch, no swelling of either ankle or foot. Ankles are nontender. With plantar flexion and dorsiflexion of the right foot patient has pain. Neuro/psych: Oriented X 3. No motor deficit. No sensory deficit. CN II-XII intact. Normal speech and cognition. Medications Administered Discontinued Medications Generic Name Dose Route Start Last Admin Trade Name Freq PRN Reason Stop Dose Admin Acetaminophen 975 mg 05/15/24 15:37 05/15/24 15:55 Acetaminophen 325 Mg Tablet PO 05/15/24 15:38 975 mg ONCE ONE Administration Medical Decision Making Medical Decision Making MDM Narrative: 63-year-old female, active smoker with history of NV, diabetes with neuropathy who presents to the ER for evaluation if pain in both of her feet, right ankle pain started after the fall today. She has no deformity or swelling on examina tion. No bruising. She does have some left-sided periorbital swelling without any pain with extraocular movements. Doubt orbital fracture. Given her age and head strike, CT scans were ordered for further evaluation. X-ray of her ankle was done and was negative. Recent venous duplex done on the left side that was negative. She has no calf or extremity swelling, suspect her bilateral feet alyce n are due to diabetic neuropathy. She declined need for crutches today. She is stable for discharge home with Motrin, Tylenol, supportive care. Recommended follow-up with her PCP. Differential Diagnosis Differential Diagnoses: The differential diagnosis associated with the presentation includes Diabetic neuropathy, Ankle sprain, ankle strain, foot fracture less likely given examination findings, periorbital contusion, low suspicion for periorbital fracture or intracranial hemorrhage Independent Interpretation I performed an independent interpretation of an: Plain X-Ray and CT Scan Interpretation: No visible soft tissue swelling or acute fracture of the ankle CT head without acute bleed or edema Radiology Impression Discussion of test interpretation with radiology: I have reviewed the radiologist's reading. Radiologist Impression: EXAMINATION: CT brain, CT facial bones and CT cervical spine without contrast. CLINICAL INDICATION: Fall. Left periorbital swelling.. Head strike. COMPARISON: CT brain, facial bones and cervical spine 02/21/2024. 2.5 to Reformatted 3 no limited thin sagittal and coronal images of brain were obtained. Axial 3 mm and reformatted 1.5 in sagittal coronal images of facial bones were obtained. Lastly 3 mm dense axial and reformatted 1.5 mm thin sagittal and coronal images of cervical spine were obtained. CT PET dose 1277. This CT examination was performed using dose optimization technique as appropriate, variously including the following: Automated exposure control Adjustment of MA and/or KV according to patient size(this includes techniques or standardized protocols for targeted exams where dose is matched to indication/reason for exam; extremities or head. Use of iterative reconstruction techniques. FINDINGS: Drains: Brain: There is no acute intra-axial, extra-axial bleed, masses or midline shift. There is no acute infarction evolution. There is no edema. The lateral ventricles are symmetric in size and configuration without enlargement. Bone windows reveal no calvarial abnormality. Bilateral paranasal sinuses and mastoid air cells are well-aerated. Facial bones: The paranasal sinuses are dilated with mild mucoperiosteal thickening right maxillary sinus. Rest of the paranasal sinuses are clear. Bony sinus mcwilliams are intact. The nasal bone is intact without any fracture. There is normal symmetrical bilateral optic globes, optic nerve and periorbital soft tissues. The orbits are normal. Bilateral TM joint and the mandible is normal. The maxillofacial bones are intact. There is bilateral dental caries present. The maxillofacial soft tissues are normal. Cervical spine: There is maintained cervical lordosis. The vertebral heights, alignment and disc heights are normal. There is a craniovertebral junction and C1-C2 alignment is normal. There is no visible acute fracture, dislocation or subluxation seen. The prevertebral and paravertebral soft tissues are normal. There is moderate left C3-4 and C4-5 degenerative facet joint arthropathy and hypertrophy. There is mild emphysema along both lung apices. CT/CT head/brain wo IV con IMPRESSION: No acute intracranial abnormality seen. There is no maxillofacial, nasal or mandibular fracture or soft tissue swelling. No acute fracture or dislocation in cervical spine. Independent Historian Clinical information obtained from an independent historian. History obtained from or confirmed by: EMS External Record Review External record reviewed: Outpatient record, Prior outpatient labs and Prior outpatient radiology Prescription Management I considered prescription management with: Pain Medication Chronic Conditions Patient?s care impacted by: Diabetes Critical Care Time Critical Care Time Critical Care Time: No Discharge Plan Discharge Clinical Impression: Right ankle sprain, Contusion of face Patient Disposition: Home, Self-Care Instructions: Ankle Sprain (DC), Facial Contusion (ED) Additional Instructions: Your x-ray today was normal. Rest your ankle and elevate your foot when possible. Recommend HENRY wrap for support and compression. Use ice several times per day for the next 48 hours. You may bear weight as tolerated. If pain is too severe, use crutches until better. Take Motrin and/or Tylenol as needed for pain. Follow up with your doctor as needed. Prescriptions: No Action azithromycin 250 mg tablet 250 mg PO DAILY Qty: 4 0RF oxycodone 5 mg tablet 5 mg PO Q6H PRN (Reason: pain) Qty: 14 0RF Rx Instructions: Partial Fill upon patient request. acetaminophen 500 mg tablet 1,000 mg PO QID PRN (Reason: pain) Qty: 30 0RF oxycodone 5 mg tablet 5 mg PO DAILY PRN (Reason: pain) 2 Days Qty: 5 0RF Rx Instructions: Partial Fill upon patient request. oxycodone 5 mg tablet 5 mg PO Q6H PRN (Reason: pain) Qty: 3 0RF Rx Instructions: Partial Fill upon patient request. oxycodone 5 mg tablet 5 mg PO Q6H PRN (Reason: pain) Qty: 3 0RF Rx Instructions: Partial Fill upon patient request. atorvastatin 80 mg tablet 80 mg PO DAILY insulin degludec [Tresiba FlexTouch U-100] 100 unit/mL (3 mL) insulin pen subcut glimepiride 4 mg tablet 4 mg PO BID loratadine 10 mg tablet 10 mg PO DAILY clonazepam 2 mg tablet 2 mg PO TID PRN mirtazapine 15 mg tablet 15 mg PO BEDTIME cholecalciferol (vitamin D3) 1,250 mcg (50,000 unit) capsule PO omeprazole 20 mg capsule,delayed release(DR/EC) 20 mg PO BID Interventions: ED Discharge Assessment Last Done: 05/15/24 16:36 Discharge Date/Time: 05/15/24 16:37 Print Language: Romansh
[2024-05-15] MEDS: Acetaminophen 325 MG TABLET 975 MG PO (15:55)
[2024-05-15 16:14] VITALS: BP 147/91; PULSE 95; RESP 18; TEMP 36.6; O2SAT 96
[2024-05-15 16:36] VITALS: BP 147/91; PULSE 95; RESP 18; TEMP 36.6; O2SAT 96
== END 2024-05-15 16:37 | disposition home or self-care (01) ==
PROVIDERS: Emergency Provider Emergency Medicine; PCP Nurse Practitioner Adult Health
DX: S00.83XA Contusion of other part of head, initial encounter (principal); S93.401A Sprain of unspecified ligament of right ankle, initial encounter; R51.9 Headache, unspecified; M54.2 Cervicalgia; M25.572 Pain in left ankle and joints of left foot; R26.81 Unsteadiness on feet; E11.9 Type 2 diabetes mellitus without complications; F17.210 Nicotine dependence, cigarettes, uncomplicated; W01.10XA Fall on same level from slipping, tripping and stumbling with subsequent striking against unspecified object, initial encounter; Y93.89 Activity, other specified; Y92.89 Other specified places as the place of occurrence of the external cause; Y99.8 Other external cause status; Z79.4 Long term (current) use of insulin; Z79.899 Other long term (current) drug therapy
CPT/HCPCS: 70450; 70486; 72125; 73600; 99283; 99284